=== PATIENT | male | born 1940 | race Hispanic/Latino ===

== ENCOUNTER 2018-01-22 12:48 | Observation (INO) | payer MEDICARE, OTHER ==
[2018-01-22 13:43] VITALS: BMI 31.1
--- NOTE | 2018-01-22 14:06 | ED PDOC ---
Arrival/HPI - General Chief Complaint: Abnormal Skin Integrity Time Seen by Provider: 01/22/18 13:40 Historian: Patient, Family (Daughter and son-in-law) - History of Present Illness Time/Duration: Other (6 or 7 months waxing and waning) Symptom Onset: Gradual Symptom Course: Worsening Quality: Aching Severity Level: Severe Activities at Onset: Rest Associated Symptoms (Text): 01/22/18 14:01 Patient complains of a 6 or 7 month history of a generalized bulus itchy rash. Becoming worse. He has been seen by the office clerk assistant once many months ago. No biopsy was done. He was admitted to the hospital and treated with IV antibiotics with some improvement. His been seen by the PMD and treated with by mouth steroids and antibiotics last week with no improvement. 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 Some minimal mucous membrane involvement Past Medical History - Infectious Disease Hx of Infectious Diseases: None - Tetanus Immunization Tetanus Immunization: Unknown - Cardiac Hx Cardiac Disorders: Yes Hx Hypertension: Yes - Neurological Hx Neurological Disorder: Yes Hx Transient Ischemic Attacks (TIA): Yes - Hematological/Oncological Hx Blood Transfusions: No Hx Blood Transfusion Reaction: No - Integumentary Hx Dermatological Disorder: Yes (GENERALIZED BLISTERING RASH) - Musculoskeletal/Rheumatological Hx Falls: Yes - Gastrointestinal Hx Gastrointestinal Disorders: No - Genitourinary/Gynecological Hx Genitourinary Disorders: No Hx Reproductive Disorders: No - Psychiatric Hx Substance Use: No (former) - Surgical History Other/Comment: hernia surgery and left shoulder surgery. - Anesthesia Hx Anesthesia Reactions: No Hx Malignant Hyperthermia: No Family/Social History - Physician Review Nursing Documentation Reviewed: Yes Family/Social History: Unknown Family HX Smoking Status: Former Smoker Hx Alcohol Use: No Hx Substance Use: No (former) Allergies/Home Meds Allergies/Adverse Reactions: Allergies No Known Allergies Allergy (Verified 01/22/18 13:37) Review of Systems - Physician Review All systems were reviewed & negative as marked: Yes - Review of Systems Constitutional: Fatigue. absent: Fevers Respiratory: Normal Cardiovascular: Normal Gastrointestinal: Normal Genitourinary Male: Normal Skin: Rash Neurological: Normal Physical Exam Vital Signs Temp Pulse Resp BP Pulse Ox 01/22/18 14:59 86 18 143/98 H 96 01/22/18 13:38 96 H 18 146/121 H 98 01/22/18 12:49 98.2 F Temperature: Afebrile Blood Pressure: Normal Pulse: Regular Respiratory Rate: Normal Appearance: Positive for: Well-Appearing, Non-Toxic, Comfortable Pain Distress: None Mental Status: Positive for: Alert and Oriented X 3 - Systems Exam Head: Present: Atraumatic, Normocephalic Pupils: Present: PERRL Extroacular Muscles: Present: EOMI Conjunctiva: Present: Normal Mouth: Present: Moist Mucous Membranes, Other (blisters) Respiratory/Chest: Present: Clear to Auscultation, Good Air Exchange, Decreased Breath Sounds. No: Respiratory Distress, Accessory Muscle Use Cardiovascular: Present: Regular Rate and Rhythm, Normal S1, S2. No: Murmurs Abdomen: No: Tenderness, Distention, Peritoneal Signs, Rebound, Guarding Back: Present: Normal Inspection Upper Extremity: Present: Normal Inspection. No: Cyanosis, Edema Lower Extremity: Present: Normal Inspection. No: Edema Neurological: Present: GCS=15, CN II-XII Intact, Speech Normal, Motor Func Grossly Intact Skin: Present: Rashes (Severe generalized, mostly bilateral thighs and lower abdomen clear fluid-filled blisters of approximately 2 cm painful and itching) Psychiatric: Present: Alert, Oriented x 3, Normal Insight, Normal Concentration Medical Decision Making - Lab Interpretations Lab Results: 01/22/18 14:15 01/22/18 14:15 Lab Results 01/22/18 14:15: Sodium 144, Potassium 4.2, Chloride 108 H, Carbon Dioxide 27, Anion Gap 14, BUN 23 H, Creatinine 0.8, Est GFR ( Amer) > 60, Est GFR ( Non-Af Amer) > 60, Random Glucose 92, Calcium 10.0, Total Bilirubin 0.4, AST 19 , ALT 19, Alkaline Phosphatase 68, Total Protein 6.8, Albumin 3.6, Globulin 3.2 , Albumin/Globulin Ratio 1.1 01/22/18 14:15: WBC 9.2 D, RBC 4.79, Hgb 13.3 L, Hct 41.0 L, MCV 85.6, MCH 27.8 , MCHC 32.4, RDW 15.8 H, Plt Count 281, MPV 9.5, Gran % 55.3, Lymph % (Auto) 12.0 L, [place] % (Auto) 4.6, Eos % (Auto) 28.0 H, Baso % (Auto) 0.1, Gran # 5.06, Lymph # (Auto) 1.1 L, [place] # (Auto) 0.4, Eos # (Auto) 2.6 H, Baso # (Auto) 0.01 , Neutrophils % (Manual) 53, Lymphocytes % (Manual) 14 L, Monocytes % (Manual) 5 , Eosinophils % (Manual) 28 H, Platelet Evaluation Normal - Medication Orders Current Medication Orders: Discontinued Medications Methylprednisolone (Solu-Medrol) 125 mg IVP ONCE ONE Stop: 01/22/18 14:11 Last Admin: 01/22/18 14:18 Dose: 125 mg IVP Administration Document 01/22/18 14:18 EQ (Rec: 01/22/18 14:18 EQ [id number]) Charges for Administration # of IVP Administrations 1 Disposition/Present on Arrival - Present on Arrival Any Indicators Present on Arrival: No History of DVT/PE: Yes History of Uncontrolled Diabetes: No Urinary Catheter: No History of Decub. Ulcer: No History Surgical Site Infection Following: None - Disposition Have Diagnosis and Disposition been Completed?: Yes Diagnosis: Pemphigus vulgaris Disposition: HOSPITALIZED Disposition Time: 15:41 Patient Plan: Observation Patient Problems: Current Active Problems Problem Status Onset Pemphigus vulgaris Acute Condition: FAIR Referrals: Markie Padron MD [Primary Care Provider] - Follow up with primary Forms: [employer] ([place])
[2018-01-22 14:44] LABS: BASO # 0.01 K/mm3 (0.0-2.0); BASO % 0.1 % (0.0-3.0); EOS # 2.6 (0.0-0.7); GRAN # 5.06 (1.4-6.5); GRAN % 55.3 % (50.0-68.0); HEMOGLOBIN 13.3 g/dL (14.0-18.0); LYMPH # 1.1 (1.2-3.4); MEAN CELL VOLUME 85.6 fl (80.0-105.0); MEAN CORPUSCULAR HEMOGLOBIN 27.8 pg (25.0-35.0); MEAN CORPUSCULAR HGB CONC 32.4 g/dl (31.0-37.0); MEAN PLATELET VOLUME 9.5 fl (7.0-11.0); MONO # 0.4 (0.1-0.6); MONO % 4.6 % (1.0-6.0); PLATELET COUNT 281 10^3/uL (120.0-450.0); RBC 4.79 10^6/uL (3.5-6.1); RED CELL DISTRIBUTION WIDTH 15.8 % (11.5-14.5); WHITE BLOOD COUNT 9.2 10^3/ul (4.5-11.0)
[2018-01-22 14:54] LABS: ALB/GLOB RATIO 1.1 (1.1-1.8); ALBUMIN 3.6 g/dL (3.0-4.8); ALT/SGPT 19 U/L (7-56); AST/SGOT 19 U/L (17-59); BLOOD UREA NITROGEN 23 mg/dL (7-21); GFR AFRICAN-AMERICAN > 60; GFR NON-AFRICAN AMERICAN > 60
[2018-01-22 14:59] LABS: EOSINOPHIL 28 % (0.0-3.0); LYMPHOCYTE 14 % (22.0-35.0); MONOCYTE 5 % (1.0-6.0); NEUTROPHIL 53 % (50.0-70.0)
[2018-01-22 15:00] LABS: PLATELET ESTIMATE NORMAL (NORMAL)
[2018-01-22] MEDS: cefTRIAXone 1 gm 1 GM/100 ML BAG IVPB SCH (16:13)
--- NOTE | 2018-01-22 16:15 | CP.PCM.HP ---
History of Present Illness - History of Present Illness History of Present Illness: 78 year old male with past medical history of HTN, brain aneurysm, bullous pemphigoid, and PE (not on anticoagulation) presents with 3 month history of worsening skin rash. Patient was admitted to hospital for 4 months ago for similar symptoms. Patient was was treated with antibiotics and steroids, then told to follow up with dermatology. Today, patient presents to the hospital for worsening itching and rupturing of blisters on his abdomen, that have now spread to his legs. Patient admits to severe itching and spreading of blisters over the last 3 months. Patient has not followed up with dermatology. Patient saw his PMD 2 weeks ago who prescribed patient doxycycline and placed patient on steroid therapy. Patient states his symptoms did not improve and came to the hospital. Patient denies chest pain, shortness of breath, vomiting, diarrhea, fever, chills, dysphagia, hematochezia, syncope, dysuria, changes in vision. PMD: Dr. Padron PMH: brain aneurysm, HTN, bullous pemphigoid, and PE PSH: Hiatal hernia repair Allergies: NKDA Medications: Reviewed, as per MAR Social history: Denies alocohol, tobacco, or illicit drug use Present on Admission - Present on Admission Any Indicators Present on Admission: No Review of Systems - Review of Systems Review of Systems: 12 point ROS as per HPI, otherwise negative. Past Patient History - Infectious Disease Hx of Infectious Diseases: None - Tetanus Immunizations Tetanus Immunization: Unknown - Past Medical History & Family History Past Medical History?: Yes - Past Social History Smoking Status: Former Smoker - CARDIAC Hx Cardiac Disorders: Yes Hx Hypertension: Yes - NEUROLOGICAL Hx Neurological Disorder: Yes Hx Transient Ischemic Attacks (TIA): Yes - HEMATOLOGICAL/ONCOLOGICAL Hx Blood Transfusions: No Hx Blood Transfusion Reaction: No - INTEGUMENTARY Hx Dermatological Problems: Yes (GENERALIZED BLISTERING RASH) - MUSCULOSKELETAL/RHEUMATOLOGICAL Hx Falls: Yes - GASTROINTESTINAL Hx Gastrointestinal Disorders: No - GENITOURINARY/GYNECOLOGICAL Hx Genitourinary Disorders: No Hx Reproductive Disorders: No - PSYCHIATRIC Hx Substance Use: No (former) - SURGICAL HISTORY Other/Comment: hernia surgery and left shoulder surgery. - ANESTHESIA Hx Anesthesia Reactions: No Hx Malignant Hyperthermia: No Meds Allergies/Adverse Reactions: Allergies Allergy/AdvReac Type Severity Reaction Status Date / Time No Known Allergies Allergy Verified 01/22/18 13:37 Physical Exam - Constitutional Appears: Non-toxic, No Acute Distress - Head Exam Head Exam: ATRAUMATIC, NORMAL INSPECTION, NORMOCEPHALIC - Eye Exam Eye Exam: EOMI, Normal appearance - ENT Exam ENT Exam: Mucous Membranes Moist, Normal Exam - Respiratory Exam Respiratory Exam: Clear to Auscultation Bilateral, NORMAL BREATHING PATTERN. absent: Rales, Rhonchi, Wheezes - Cardiovascular Exam Cardiovascular Exam: RRR, +S1, +S2 - GI/Abdominal Exam GI & Abdominal Exam: Normal Bowel Sounds, Soft. absent: Tenderness - Extremities Exam Extremities exam: Positive for: normal inspection. Negative for: calf tenderness, pedal edema - Neurological Exam Neurological exam: Alert, CN II-XII Intact, Oriented x3 - Psychiatric Exam Psychiatric exam: Normal Affect, Normal Mood - Skin Additional comments: Intact blisters on lower abdomen and b/l upper legs. Blisters sparing the back. Multiple ruptured blisters with scabbing over lower abdomen and upper legs Mild erythema along upper legs, sparing the scrotum and genital region Results - Vital Signs Recent Vital Signs: Last Vital Signs Temp 98.2 F 01/22/18 12:49 Pulse 82 01/22/18 15:59 Resp 18 01/22/18 15:59 BP 146/82 01/22/18 15:59 Pulse Ox 98 01/22/18 15:59 - Labs Result Diagrams: 01/22/18 14:15 01/22/18 14:15 Labs: Laboratory Results - last 24 hr 01/22/18 01/22/18 14:15 14:15 WBC 9.2 D RBC 4.79 Hgb 13.3 L Hct 41.0 L MCV 85.6 MCH 27.8 MCHC 32.4 RDW 15.8 H Plt Count 281 MPV 9.5 Gran % 55.3 Lymph % (Auto) 12.0 L [place] % (Auto) 4.6 Eos % (Auto) 28.0 H Baso % (Auto) 0.1 Gran # 5.06 Lymph # (Auto) 1.1 L [place] # (Auto) 0.4 Eos # (Auto) 2.6 H Baso # (Auto) 0.01 Neutrophils % (Manual) 53 Lymphocytes % (Manual) 14 L Monocytes % (Manual) 5 Eosinophils % (Manual) 28 H Platelet Evaluation Normal Sodium 144 Potassium 4.2 Chloride 108 H Carbon Dioxide 27 Anion Gap 14 BUN 23 H Creatinine 0.8 Est GFR ( Amer) > 60 Est GFR (Non-Af Amer) > 60 Random Glucose 92 Calcium 10.0 Total Bilirubin 0.4 AST 19 ALT 19 Alkaline Phosphatase 68 Total Protein 6.8 Albumin 3.6 Globulin 3.2 Albumin/Globulin Ratio 1.1 Assessment & Plan - Assessment and Plan (Free Text) Plan: 78 year old male with past medical history of HTN, brain aneurysm, bullous pemphigoid, and PE presents with cellulitis and worsening of bullous pemphigoid. Patient will be restarted on broad spectrum antibiotics and have ID consulted. Will also start patient on IV steroid therapy. 1. Bullous pemphigoid, r/o cellulitis Rocephin and Doxycycline Solumedrol 40 mg q8h Benadryl prn for pruritus Wound culture ID consult 2. HTN Continue Coreg 3. Normocytic anemia Hg stable, at baseline Follow up outpatient 4. Prophylaxis Pepcid Heparin [place]a, PGY-2
[2018-01-22] MEDS: MethylPREDNISolone 40 mg Vial IVP SCH (16:26)
--- NOTE | 2018-01-22 19:32 | CP.PCM.PN ---
Subjective - Date & Time of Evaluation Date of Evaluation: 01/22/18 Time of Evaluation: 19:31 - Subjective Subjective: # 20 angiocath was inserted in left forearm. Dx:Poor venous access. Objective - Vital Signs/Intake and Output Vital Signs (last 24 hours): Temp Pulse Resp BP Pulse Ox 98.2 F 94 H 18 148/103 H 98 01/22/18 12:49 01/22/18 17:23 01/22/18 16:27 01/22/18 17:23 01/22/18 15:59 - Medications Medications: Current Medications Carvedilol (Coreg) 12.5 mg PO BID [facility] Last Admin: 01/22/18 17:23 Dose: 12.5 mg Diphenhydramine HCl (Benadryl) 25 mg PO Q8 PRN PRN Reason: Itching / Pruritus Famotidine (Pepcid) 40 mg PO HS JOSUE Heparin Sodium (Porcine) (Heparin) 5,000 units SC Q8 JOSUE PRN Reason: Protocol Doxycycline Hyclate 100 mg/ (Sodium Chloride) 100 mls @ 100 mls/hr IVPB Q12 JOSUE PRN Reason: Protocol Ceftriaxone Sodium (Rocephin 1 Gram Ivpb) 1 gm in 100 mls @ 100 mls/hr IVPB DAILY JOSUE PRN Reason: Protocol Last Admin: 01/22/18 16:13 Dose: 100 mls/hr Methylprednisolone (Solu-Medrol) 40 mg IVP Q8H [facility] Last Admin: 01/22/18 16:26 Dose: Not Given
[2018-01-22 20:19] VITALS: RESP 20
[2018-01-23] MEDS: MethylPREDNISolone 40 mg Vial IVP SCH ×2 (00:06→09:00)
[2018-01-23 07:31] VITALS: TEMP 98.2; O2SAT 96
[2018-01-23 07:34] LABS: MEAN CELL VOLUME 84.7 fl (80.0-105.0); MEAN CORPUSCULAR HEMOGLOBIN 26.4 pg (25.0-35.0); MEAN CORPUSCULAR HGB CONC 31.2 g/dl (31.0-37.0); MEAN PLATELET VOLUME 10.3 fl (7.0-11.0); RBC 4.24 10^6/uL (3.5-6.1); RED CELL DISTRIBUTION WIDTH 15.5 % (11.5-14.5); WHITE BLOOD COUNT 4.5 10^3/ul (4.5-11.0)
[2018-01-23 07:36] LABS: HEMOGLOBIN 11.2 g/dL (14.0-18.0)
[2018-01-23 07:43] LABS: ALB/GLOB RATIO 1.1 (1.1-1.8); ALBUMIN 3.3 g/dL (3.0-4.8); ALT/SGPT 24 U/L (7-56); AST/SGOT 17 U/L (17-59); BLOOD UREA NITROGEN 19 mg/dL (7-21); GFR AFRICAN-AMERICAN > 60; GFR NON-AFRICAN AMERICAN > 60
[2018-01-23] MEDS: cefTRIAXone 1 gm 1 GM/100 ML BAG IVPB SCH (09:52)
--- NOTE | 2018-01-23 12:36 | CP.PCM.CON ---
History of Present Illness - History of Present Illness History of Present Illness: 78 year old male with PMH of HTN, history of brain aneurysm, history of pulmonary embolism, S/P hiatal hernia repair, obesity with BMI 31, has seen a mold maker after seen at [facility] last year for bullous lesions of the skin and was told he probable has bullous pemphigoid. He was given steroids which initially helped but then he stopped seeing the mold maker because of financial burden. Since then the rash has been worsening with more bullous lesions coming out of his right side of the abdomen as well as his legs. His previous lesions did get better with steroids. He was also prescribed steroids and doxycycline by his PMD 2 weeks ago which apparently did not help. He denies animal contacts, no fever or chills, no soil contact, no headache or dizziness, no chest pain, no SOB, no abdominal pain, no diarrhea, no dysuria, no cough or colds. Infectious Diseases consult is requested to further evaluate and manage. Review of Systems - Review of Systems All systems: reviewed and no additional remarkable complaints except (as per HPI ) Past Patient History - Infectious Disease Hx of Infectious Diseases: None - Tetanus Immunizations Tetanus Immunization: Unknown - Past Medical History & Family History Past Medical History?: Yes - Past Social History Smoking Status: Former Smoker - CARDIAC Hx Cardiac Disorders: Yes Hx Hypertension: Yes - NEUROLOGICAL Hx Neurological Disorder: Yes Hx Transient Ischemic Attacks (TIA): Yes - HEMATOLOGICAL/ONCOLOGICAL Hx Blood Transfusions: No Hx Blood Transfusion Reaction: No - INTEGUMENTARY Hx Dermatological Problems: Yes (GENERALIZED BLISTERING RASH) - MUSCULOSKELETAL/RHEUMATOLOGICAL Hx Falls: No - GASTROINTESTINAL Hx Gastrointestinal Disorders: No - GENITOURINARY/GYNECOLOGICAL Hx Genitourinary Disorders: No - PSYCHIATRIC Hx Substance Use: No - SURGICAL HISTORY Other/Comment: hernia surgery and left shoulder surgery. - ANESTHESIA Hx Anesthesia Reactions: No Hx Malignant Hyperthermia: No Meds Allergies/Adverse Reactions: Allergies Allergy/AdvReac Type Severity Reaction Status Date / Time No Known Allergies Allergy Verified 01/22/18 13:37 - Medications Medications: Current Medications Carvedilol (Coreg) 12.5 mg PO BID [facility] Last Admin: 01/22/18 17:23 Dose: 12.5 mg Diphenhydramine HCl (Benadryl) 25 mg PO Q8 PRN PRN Reason: Itching / Pruritus Famotidine (Pepcid) 40 mg PO HS [facility] Last Admin: 01/22/18 21:40 Dose: 40 mg Heparin Sodium (Porcine) (Heparin) 5,000 units SC Q8 JOSUE PRN Reason: Protocol Last Admin: 01/22/18 21:36 Dose: 5,000 units Doxycycline Hyclate 100 mg/ (Sodium Chloride) 100 mls @ 100 mls/hr IVPB Q12 JOSUE PRN Reason: Protocol Last Admin: 01/22/18 21:36 Dose: 100 mls/hr Ceftriaxone Sodium (Rocephin 1 Gram Ivpb) 1 gm in 100 mls @ 100 mls/hr IVPB DAILY JOSUE PRN Reason: Protocol Last Admin: 01/22/18 16:13 Dose: 100 mls/hr Methylprednisolone (Solu-Medrol) 40 mg IVP Q8H [facility] Last Admin: 01/22/18 16:26 Dose: Not Given Physical Exam - Constitutional Appears: Chronically Ill - Head Exam Head Exam: NORMAL INSPECTION - ENT Exam ENT Exam: Mucous Membranes Moist - Neck Exam Neck exam: Negative for: Lymphadenopathy, Meningismus - Respiratory Exam Respiratory Exam: Decreased Breath Sounds - Cardiovascular Exam Cardiovascular Exam: +S1, +S2 - GI/Abdominal Exam GI & Abdominal Exam: Soft. absent: Tenderness - Skin Additional comments: bullous skin lesions noted on the upper thighs and right side of the abdomen with scabs noted from previous bullous lesions Results - Vital Signs Recent Vital Signs: Last Vital Signs Temp 97.2 F L 01/22/18 18:05 Pulse 80 01/22/18 18:05 Resp 20 01/22/18 18:05 BP 136/80 01/22/18 18:05 Pulse Ox 98 01/22/18 18:05 - Labs Result Diagrams: 01/23/18 07:00 01/23/18 07:00 Assessment & Plan - Assessment and Plan (Free Text) Plan: Assessment consider bullous pemphigoid with no evidence of superimposed cellulitis HTN history of brain aneurysm history of pulmonary embolism S/P hiatal hernia repair Plan was started on Rocephin and Doxycycline but can d/c Rocephin - continue steroids as per primary medical team can complete 7-10 days of Doxycycline
--- NOTE | 2018-01-23 15:30 | CP.PCM.DIS ---
<Leander Andrade - Last Filed: 01/23/18 15:18> Provider - Provider Date of Admission: 01/22/18 15:39 Attending physician: Myke Coello MD Primary care physician: Markie Padron MD Consults: ID: Dr. Bills Time Spent in preparation of Discharge (in minutes): 30 Diagnosis - Discharge Diagnosis (1) Bullous pemphigoid Status: Acute Priority: High (2) Hypertension Status: Chronic Priority: Medium Hospital Course - Lab Results Lab Results: Most Recent Lab Values WBC 4.5 10^3/ul (4.5-11.0) D 01/23/18 07:00 RBC 4.24 10^6/uL (3.5-6.1) 01/23/18 07:00 Hgb 11.2 g/dL (14.0-18.0) L D 01/23/18 07:00 Hct 35.9 % (42.0-52.0) L 01/23/18 07:00 MCV 84.7 fl (80.0-105.0) 01/23/18 07:00 MCH 26.4 pg (25.0-35.0) 01/23/18 07:00 MCHC 31.2 g/dl (31.0-37.0) 01/23/18 07:00 RDW 15.5 % (11.5-14.5) H 01/23/18 07:00 Plt Count 252 10^3/uL (120.0-450.0) 01/23/18 07:00 MPV 10.3 fl (7.0-11.0) 01/23/18 07:00 Gran % 55.3 % (50.0-68.0) 01/22/18 14:15 Lymph % (Auto) 12.0 % (22.0-35.0) L 01/22/18 14:15 [place] % (Auto) 4.6 % (1.0-6.0) 01/22/18 14:15 Eos % (Auto) 28.0 % (1.5-5.0) H 01/22/18 14:15 Baso % (Auto) 0.1 % (0.0-3.0) 01/22/18 14:15 Gran # 5.06 (1.4-6.5) 01/22/18 14:15 Lymph # (Auto) 1.1 (1.2-3.4) L 01/22/18 14:15 [place] # (Auto) 0.4 (0.1-0.6) 01/22/18 14:15 Eos # (Auto) 2.6 (0.0-0.7) H 01/22/18 14:15 Baso # (Auto) 0.01 K/mm3 (0.0-2.0) 01/22/18 14:15 Neutrophils % (Manual) 53 % (50.0-70.0) 01/22/18 14:15 Lymphocytes % (Manual) 14 % (22.0-35.0) L 01/22/18 14:15 Monocytes % (Manual) 5 % (1.0-6.0) 01/22/18 14:15 Eosinophils % (Manual) 28 % (0.0-3.0) H 01/22/18 14:15 Platelet Evaluation Normal (NORMAL) 01/22/18 14:15 Sodium 143 mmol/L (132-148) 01/23/18 07:00 Potassium 4.3 mmol/L (3.6-5.0) 01/23/18 07:00 Chloride 108 mmol/L (98-107) H 01/23/18 07:00 Carbon Dioxide 25 mmol/L (21-33) 01/23/18 07:00 Anion Gap 14 (10-20) 01/23/18 07:00 BUN 19 mg/dL (7-21) 01/23/18 07:00 Creatinine 0.6 mg/dl (0.8-1.5) L 01/23/18 07:00 Est GFR ( Amer) > 60 01/23/18 07:00 Est GFR (Non-Af Amer) > 60 01/23/18 07:00 Random Glucose 137 mg/dL (70-110) H 01/23/18 07:00 Calcium 9.0 mg/dL (8.4-10.5) 01/23/18 07:00 Total Bilirubin 0.2 mg/dL (0.2-1.3) 01/23/18 07:00 AST 17 U/L (17-59) 01/23/18 07:00 ALT 24 U/L (7-56) 01/23/18 07:00 Alkaline Phosphatase 56 U/L (38-126) 01/23/18 07:00 Total Protein 6.5 g/dL (5.8-8.3) 01/23/18 07:00 Albumin 3.3 g/dL (3.0-4.8) 01/23/18 07:00 Globulin 3.1 gm/dL 01/23/18 07:00 Albumin/Globulin Ratio 1.1 (1.1-1.8) 01/23/18 07:00 - Hospital Course Hospital Course: Patient is a 78 year old male with past medical history of HTN, brain aneurysm, bullous pemphigoid, and PE (not on anticoagulation) who presented with 3 month history of worsening skin rash that had been noted to cause him itching and rupturing of blisters on his abdomen with spreading to his anterior lower legs bilaterally. Patient had been treated previously with IV antibiotics, steroids, and wound care before for similar presentation. Patient was admitted and placed on IV antibiotics and steroids. ID was consulted and recommended doxycycline and steroids for outpatient therapy pending follow up with PMD and pattern cutter. Patient was placed on doxycycline and prednisone oral for his mild to moderate bullous pemphigoid. Patient was consulted heavily on the importance of appropriate medication adherence and follow up with PMD and Casing Crew for tapering of steroids. Patient reported improvement of his symptoms during hospital stay, continued to be hemodynamically stable and afebrile. Patient denied chest pain, shortness of breath, vomiting, diarrhea, fever, chills, dysphagia, hematochezia, syncope, dysuria, changes in vision. He was discharged with instructions to follow up with PMD and pattern cutter. All questions were answered from patient. Patient was instructed to return to ED if he developed symptoms of fever, chills, diarrhea, vomiting, further worsening of his current skin manifestations. - Date & Time of H&P Date of H&P: 01/22/18 Time of H&P: 16:05 Discharge Exam - Head Exam Head Exam: NORMAL INSPECTION - Eye Exam Eye Exam: EOMI, PERRL - Respiratory Exam Respiratory Exam: Clear to PA & Lateral. absent: Rales, Wheezes, Stridor - Cardiovascular Exam Cardiovascular Exam: REGULAR RHYTHM, +S1, +S2 - GI/Abdominal Exam GI & Abdominal Exam: Normal Bowel Sounds, Soft, Unremarkable Additional comments: bullous lesions noted, old scarring and scabing noted on lower abdomen b/l - Neurological Exam Neurological exam: Alert, CN II-XII Intact, Oriented x3 - Psychiatric Exam Psychiatric exam: Normal Affect, Normal Mood - Skin Skin Exam: Dry Additional comments: Patient noted to have bullous lesions with fluid collection, minimal bullous formations with leakage, old scarring noted from previous lesions on anterior b/ l legs as well as lower abdomen Discharge Plan - Discharge Medications Prescriptions: RX: Carvedilol [Coreg] 12.5 mg PO BID #60 tab RX: Doxycycline Hyclate 100 mg PO BID #14 cap RX: Prednisone 50 mg PO DAILY 21 Days #21 tablet - Follow Up Plan Condition: FAIR Disposition: HOME/ ROUTINE Instructions: Itchy Skin Additional Instructions: - Follow up with PMD within 1 to 2 weeks following discharge - Follow up with Casing Crew 1 to 2 weeks following discharge - Follow up with Casing Crew upon discharge - Take all medications as prescribed to you - If symptoms worsen or return contact your PMD office for instructions - Keep areas of affected skin clean and dry Referrals: Markie Padron MD [Primary Care Provider] - <Myke Coello - Last Filed: 01/23/18 15:48> Provider - Provider Date of Admission: 01/22/18 15:39 Attending physician: Myke Coello MD Primary care physician: Markie Padron MD Time Spent in preparation of Discharge (in minutes): 35 Hospital Course - Lab Results Lab Results: Most Recent Lab Values WBC 4.5 10^3/ul (4.5-11.0) D 01/23/18 07:00 RBC 4.24 10^6/uL (3.5-6.1) 01/23/18 07:00 Hgb 11.2 g/dL (14.0-18.0) L D 01/23/18 07:00 Hct 35.9 % (42.0-52.0) L 01/23/18 07:00 MCV 84.7 fl (80.0-105.0) 01/23/18 07:00 MCH 26.4 pg (25.0-35.0) 01/23/18 07:00 MCHC 31.2 g/dl (31.0-37.0) 01/23/18 07:00 RDW 15.5 % (11.5-14.5) H 01/23/18 07:00 Plt Count 252 10^3/uL (120.0-450.0) 01/23/18 07:00 MPV 10.3 fl (7.0-11.0) 01/23/18 07:00 Gran % 55.3 % (50.0-68.0) 01/22/18 14:15 Lymph % (Auto) 12.0 % (22.0-35.0) L 01/22/18 14:15 [place] % (Auto) 4.6 % (1.0-6.0) 01/22/18 14:15 Eos % (Auto) 28.0 % (1.5-5.0) H 01/22/18 14:15 Baso % (Auto) 0.1 % (0.0-3.0) 01/22/18 14:15 Gran # 5.06 (1.4-6.5) 01/22/18 14:15 Lymph # (Auto) 1.1 (1.2-3.4) L 01/22/18 14:15 [place] # (Auto) 0.4 (0.1-0.6) 01/22/18 14:15 Eos # (Auto) 2.6 (0.0-0.7) H 01/22/18 14:15 Baso # (Auto) 0.01 K/mm3 (0.0-2.0) 01/22/18 14:15 Neutrophils % (Manual) 53 % (50.0-70.0) 01/22/18 14:15 Lymphocytes % (Manual) 14 % (22.0-35.0) L 01/22/18 14:15 Monocytes % (Manual) 5 % (1.0-6.0) 01/22/18 14:15 Eosinophils % (Manual) 28 % (0.0-3.0) H 01/22/18 14:15 Platelet Evaluation Normal (NORMAL) 01/22/18 14:15 Sodium 143 mmol/L (132-148) 01/23/18 07:00 Potassium 4.3 mmol/L (3.6-5.0) 01/23/18 07:00 Chloride 108 mmol/L (98-107) H 01/23/18 07:00 Carbon Dioxide 25 mmol/L (21-33) 01/23/18 07:00 Anion Gap 14 (10-20) 01/23/18 07:00 BUN 19 mg/dL (7-21) 01/23/18 07:00 Creatinine 0.6 mg/dl (0.8-1.5) L 01/23/18 07:00 Est GFR ( Amer) > 60 01/23/18 07:00 Est GFR (Non-Af Amer) > 60 01/23/18 07:00 Random Glucose 137 mg/dL (70-110) H 01/23/18 07:00 Calcium 9.0 mg/dL (8.4-10.5) 01/23/18 07:00 Total Bilirubin 0.2 mg/dL (0.2-1.3) 01/23/18 07:00 AST 17 U/L (17-59) 01/23/18 07:00 ALT 24 U/L (7-56) 01/23/18 07:00 Alkaline Phosphatase 56 U/L (38-126) 01/23/18 07:00 Total Protein 6.5 g/dL (5.8-8.3) 01/23/18 07:00 Albumin 3.3 g/dL (3.0-4.8) 01/23/18 07:00 Globulin 3.1 gm/dL 01/23/18 07:00 Albumin/Globulin Ratio 1.1 (1.1-1.8) 01/23/18 07:00 Attending/Attestation - Attestation I have personally seen and examined this patient.: Yes I have fully participated in the care of the patient.: Yes I have reviewed all pertinent clinical information, including history, physical exam and plan: Yes Notes (Text): 01/23/18 15:40 78 year old male with past medical history of hypertension and bullous pemphigoid who presented with bilateral lower extremity skin rash with rupturing blisters/bullae. He was started on iv antibiotics and steroids. He was seen by ID who recommended po doxycycline and steroids. Patient is discharged home to follow up with his pmd. Continue with po antibiotics and tapering steroids. Follow up with pattern cutter. Myke Coello MD Hospitalist.
[2018-01-23 17:46] VITALS: BP 146/95; PULSE 75
== END 2018-01-23 18:19 | disposition home or self-care (01) ==
LOC: ED 12:48 → ERH 15:39 → 5RSO 16:31
PROVIDERS: ADMIT Internal Medicine; ATTEND Internal Medicine
DX: L12.0 Bullous pemphigoid (principal); I10 Essential (primary) hypertension; I67.1 Cerebral aneurysm, nonruptured; D64.9 Anemia, unspecified; Z68.31 Body mass index [BMI] 31.0-31.9, adult; E66.9 Obesity, unspecified; Z86.73 Personal history of transient ischemic attack (TIA), and cerebral infarction without residual deficits; Z86.711 Personal history of pulmonary embolism
CPT/HCPCS: 36415; 80053; 85025; 85027; 87040; 96374; 99283; G0378; J0696; J1644; J2920; J2930

== ENCOUNTER 2018-03-28 15:53 | Inpatient (IN) | payer MEDICARE, OTHER ==
[2018-03-28 16:18] VITALS: BMI 27.2
--- NOTE | 2018-03-28 17:01 | ED PDOC ---
Arrival/HPI - General Chief Complaint: Lower Extremity Problem/Injury Time Seen by Provider: 03/28/18 16:27 Historian: Patient - History of Present Illness Narrative History of Present Illness (Text): 03/28/18 17:02 78yo male with PMhx of Phemphigoid bullous who present with complaint of worsening pruritic and painful rash to his diffuse body x 2weeks. Patient states the rash improved slightly after he was discharged from this hospital in January and then started getting worse again 2weeks ago. He saw a Gameplay Programmer in the past. states he is not on any medication currently. Denies any inciting factors, SOB, fever, neck pain, meningeal signs, any other complaint. Past Medical History - Provider Review Nursing Documentation Reviewed: Yes - Infectious Disease Hx of Infectious Diseases: None - Tetanus Immunization Tetanus Immunization: Unknown - Cardiac Hx Cardiac Disorders: Yes Hx Hypertension: Yes - Pulmonary Hx Respiratory Disorders: No - Neurological Hx Neurological Disorder: No - HEENT Hx HEENT Disorder: No - Renal Hx Renal Disorder: No - Endocrine/Metabolic Hx Endocrine Disorders: No - Hematological/Oncological Hx Blood Disorders: No - Integumentary Hx Dermatological Disorder: Yes (GENERALIZED BLISTERING RASH) - Musculoskeletal/Rheumatological Hx Musculoskeletal Disorders: No - Gastrointestinal Hx Gastrointestinal Disorders: No - Genitourinary/Gynecological Hx Genitourinary Disorders: No - Psychiatric Hx Psychophysiologic Disorder: No Hx Substance Use: No - Surgical History Other/Comment: hernia surgery and left shoulder surgery. - Anesthesia Hx Anesthesia Reactions: No Hx Malignant Hyperthermia: No Family/Social History - Physician Review Nursing Documentation Reviewed: Yes Family/Social History: Unknown Family HX Smoking Status: Former Smoker Hx Alcohol Use: Yes (former) Hx Substance Use: No Allergies/Home Meds Allergies/Adverse Reactions: Allergies No Known Allergies Allergy (Verified 03/28/18 16:17) Home Medications: Home Meds Medication Instructions Recorded Confirmed No Known Home Med 03/28/18 03/28/18 Review of Systems - Physician Review All systems were reviewed & negative as marked: Yes - Review of Systems Constitutional: Normal Eyes: Normal ENT: Normal Respiratory: Normal Cardiovascular: Normal Gastrointestinal: Normal Genitourinary Male: Normal Musculoskeletal: Normal Skin: Rash, Pruritis Neurological: Normal Endocrine: Normal Hemo/Lymphatic: Normal Psychiatric: Normal Physical Exam Vital Signs Reviewed: Yes Vital Signs Temp Pulse Resp BP Pulse Ox 03/28/18 21:55 98 F 90 18 140/91 H 99 03/28/18 20:26 98.1 F 91 H 20 153/105 H 95 03/28/18 19:28 170/101 H 03/28/18 16:18 98.0 F 91 H 18 140/97 H 96 Temperature: Afebrile Blood Pressure: Normal Pulse: Regular Respiratory Rate: Normal Appearance: Positive for: Well-Appearing, Non-Toxic, Comfortable Pain Distress: None Mental Status: Positive for: Alert and Oriented X 3 - Systems Exam Head: Present: Atraumatic, Normocephalic Pupils: Present: PERRL Extroacular Muscles: Present: EOMI Conjunctiva: Present: Normal Mouth: Present: Moist Mucous Membranes Neck: Present: Normal Range of Motion Respiratory/Chest: Present: Clear to Auscultation, Good Air Exchange. No: Respiratory Distress, Accessory Muscle Use Cardiovascular: Present: Regular Rate and Rhythm, Normal S1, S2. No: Murmurs Abdomen: No: Tenderness, Distention, Peritoneal Signs Back: Present: Normal Inspection Upper Extremity: Present: Normal Inspection. No: Cyanosis, Edema Lower Extremity: Present: Normal Inspection, Edema (3+ pitting edema of b/l LE noted), NORMAL PULSES (Decreased), Normal ROM, Tenderness, Neurovascularly Intact. No: Troy's Sign, Temperature Abnormalties Neurological: Present: GCS=15, CN II-XII Intact, Speech Normal Skin: Present: Warm, Dry, Rashes (Elevated hyperkeratoic thick erythematous patch noted on b/l arm, abdominal wall and worse on b/l thigh), Normal Color Psychiatric: Present: Alert, Oriented x 3, Normal Insight, Normal Concentration Medical Decision Making ED Course and Treatment: 03/28/18 22:01 78yo male present with pruritic and painful rash to his abdominal wall, b/l upper and lower extremities. Rash appeared cellulitic. Lab was ordered and no leukocytosis. B/L LE doppler was negative for DVT Pt's previous chart was reviewed and he was seen here in January for same complaint. He will need admission for IV abx. solu medrol was given in ED . CXR NAD EKG Sinus rhythm with PAC @93bpm NSTEMI Case was DW Dr. Osborn who saw pt in ED and accepted him for admission to his service. He requested Dr. Krishnamurthy consult. - Lab Interpretations Lab Results: 03/28/18 18:17 03/28/18 18:17 Lab Results 03/28/18 18:17: Sodium 142, Potassium 4.2, Chloride 106, Carbon Dioxide 26, Anion Gap 15, BUN 14, Creatinine 0.8, Est GFR ( Amer) > 60, Est GFR (Non- Af Amer) > 60, Random Glucose 90, Calcium 8.7, Total Bilirubin 0.3, AST 18, ALT 28, Alkaline Phosphatase 71, Lactate Dehydrogenase 502, Total Creatine Kinase 76 , Troponin I < 0.01, NT-Pro-B Natriuret Pep 686 H, Total Protein 6.3, Albumin 3.4, Globulin 2.8, Albumin/Globulin Ratio 1.2 03/28/18 18:17: PT 10.8, INR 0.95, APTT 32.0 03/28/18 18:17: WBC 8.4 D, RBC 4.44, Hgb 11.8 L, Hct 36.9 L, MCV 83.1, MCH 26.6 , MCHC 32.0, RDW 16.0 H, Plt Count 326, MPV 9.2, Gran % 49.6 L, Lymph % (Auto) 18.5 L, [place] % (Auto) 5.7, Eos % (Auto) 26.0 H, Baso % (Auto) 0.2, Gran # 4.16, Lymph # (Auto) 1.6, [place] # (Auto) 0.5, Eos # (Auto) 2.2 H, Baso # (Auto) 0.02, Neutrophils % (Manual) 56, Lymphocytes % (Manual) 20 L, Monocytes % (Manual) 5, Eosinophils % (Manual) 19 H, Platelet Evaluation Normal, Hypochromasia Slight, Anisocytosis (manual) 1+, Microcytosis (manual) Slight - RAD Interpretation Radiology Orders: 03/28/18 16:58 DUPLEX LOWER EXTRM VEIN BILAT [US] Stat - Medication Orders Current Medication Orders: Amlodipine Besylate (Norvasc) 5 mg PO DAILY JOSUE Furosemide (Lasix) 40 mg IVP DAILY JOSUE Piperacillin Sod/Tazobactam Sod (Zosyn 2.25 Gm In 0.9% 100 Ml) 2.25 gm in 100 mls @ 100 mls/hr IVPB Q8H JOSUE PRN Reason: Protocol Stop: 03/29/18 04:59 Last Admin: 03/28/18 20:56 Dose: Methylprednisolone (Solu-Medrol) 30 mg IVP Q12 JOSUE Last Admin: 03/28/18 23:14 Dose: 30 mg IVP Administration Document 03/28/18 23:14 PCO (Rec: 03/28/18 23:15 PCO [facility] [place] [facility] [id number][place] Charges for Administration # of IVP Administrations 1 Discontinued Medications Furosemide (Lasix) 40 mg IVP STAT STA Stop: 03/28/18 18:55 Last Admin: 03/28/18 19:28 Dose: 40 mg MAR Blood Pressure Document 03/28/18 19:28 LA (Rec: 03/28/18 19:30 LA [id number]) Blood Pressure Blood Pressure (100/60-150/90) 170/101 IVP Administration Document 03/28/18 19:28 LA (Rec: 03/28/18 19:30 LA [id number]) Charges for Administration # of IVP Administrations 1 Piperacillin Sod/Tazobactam Sod (Zosyn 3.375 In Ns 100ml) 100 mls @ 200 mls/hr IVPB STAT STA PRN Reason: Protocol Stop: 03/28/18 19:24 Last Admin: 03/28/18 19:28 Dose: 200 mls/hr eMAR Start Stop Document 03/28/18 19:28 LA (Rec: 03/28/18 19:28 LA [id number]) Intravenous Solution Start Date 03/28/18 Start Time 19:28 End Date 03/28/18 End time 19:58 Total Infusion Time 30 Methylprednisolone (Solu-Medrol) 125 mg IVP STAT STA Stop: 03/28/18 17:00 Last Admin: 03/28/18 17:35 Dose: 125 mg IVP Administration Document 03/28/18 17:35 LA (Rec: 03/28/18 17:35 LA [id number]) Charges for Administration # of IVP Administrations 1 Disposition/Present on Arrival - Present on Arrival Any Indicators Present on Arrival: No History of DVT/PE: No History of Uncontrolled Diabetes: No Urinary Catheter: No History of Decub. Ulcer: No History Surgical Site Infection Following: None - Disposition Have Diagnosis and Disposition been Completed?: Yes Diagnosis: Pemphigus vulgaris, Cellulitis, Edema Disposition: HOSPITALIZED Disposition Time: 18:45 Patient Plan: Admission Patient Problems: Current Active Problems Problem Status Onset Cellulitis Acute Edema Acute Pemphigus vulgaris Acute Condition: STABLE
[2018-03-28 18:24] LABS: BASO # 0.02 K/mm3 (0.0-2.0); BASO % 0.2 % (0.0-3.0); EOS # 2.2 (0.0-0.7); GRAN # 4.16 (1.4-6.5); GRAN % 49.6 % (50.0-68.0); HEMOGLOBIN 11.8 g/dL (14.0-18.0); LYMPH # 1.6 (1.2-3.4); LYMPH % 18.5 % (22.0-35.0); MEAN CELL VOLUME 83.1 fl (80.0-105.0); MEAN CORPUSCULAR HEMOGLOBIN 26.6 pg (25.0-35.0); MEAN PLATELET VOLUME 9.2 fl (7.0-11.0); MONO # 0.5 (0.1-0.6); MONO % 5.7 % (1.0-6.0); PLATELET COUNT 326 10^3/uL (120.0-450.0); RBC 4.44 10^6/uL (3.5-6.1); WHITE BLOOD COUNT 8.4 10^3/ul (4.5-11.0)
[2018-03-28 18:34] LABS: ALB/GLOB RATIO 1.2 (1.1-1.8); ALBUMIN 3.4 g/dL (3.0-4.8); ALT/SGPT 28 U/L (7-56); AST/SGOT 18 U/L (17-59); BLOOD UREA NITROGEN 14 mg/dL (7-21); CALCIUM 8.7 mg/dL (8.4-10.5); GFR AFRICAN-AMERICAN > 60; GFR NON-AFRICAN AMERICAN > 60
[2018-03-28 18:42] LABS: INR 0.95 (0.93-1.08); PROTHROMBIN TIME 10.8 SECONDS (9.4-12.5)
[2018-03-28 18:46] LABS: B-TYPE NATRIURETIC PEPTIDE 686 pg/mL (0-450); TROPONIN I < 0.01 ng/mL
[2018-03-28 18:49] LABS: LYMPHOCYTE 20 % (22.0-35.0); NEUTROPHIL 56 % (50.0-70.0)
[2018-03-28 18:50] LABS: ANISOCYTOSIS 1+; EOSINOPHIL 19 % (0.0-3.0); HYPOCHROMIA SLIGHT; MICROCYTOSIS SLIGHT; MONOCYTE 5 % (1.0-6.0); PLATELET ESTIMATE NORMAL (NORMAL)
[2018-03-28] MEDS ORDERED: Piperacillin/Tazobact 3.375 gm 100 ML IVPB STA (18:55)
[2018-03-28] MEDS: Piperacillin/Tazobact 2.25gm 2.25 GM/100 ML BAG IVPB SCH ×2 (20:05→20:56)
--- NOTE | 2018-03-28 21:42 | US ---
HISTORY: Leg pain and swelling. Evaluate for DVT PHYSICIAN(S): Silvino Barbour MD. TECHNIQUE: Duplex sonography and color-flow Doppler with graded compression were used to evaluate the deep venous systems of both lower extremities. The exam is limited by edema. The tibial veins are not well seen. FINDINGS: The visualized deep venous systems of both lower extremities are sonographically normal and compressible. Normal wave forms and augmentation are seen. There is no sonographic evidence for deep venous thrombosis in the visualized segments of both lower extremities. IMPRESSION: No sonographic evidence for deep venous thrombosis in the visualized segments of both lower extremities.
[2018-03-28] MEDS: MethylPREDNISolone 40 mg Vial IVP SCH (23:14)
--- NOTE | 2018-03-29 01:06 | HP ---
HISTORY OF PRESENT ILLNESS: I was called to the ER to admit this nice young man. He is 78 years old, who presents with swelling and itchiness of his lower extremity, very painful. He was discharged from the hospital in January. He got worse 2 weeks ago. He saw a site head in the past. He has no medications at this time. PAST MEDICAL HISTORY: He has a past medical history of pemphigoid bullous. He has got hypertension, generalized blistering of the rash. PAST SURGICAL HISTORY: He has had surgeries of hernia surgery, left shoulder surgery. FAMILY HISTORY: Unknown family history. SOCIAL HISTORY: Former smoker, former alcohol. No drugs. ALLERGIES: NO KNOWN DRUG ALLERGIES. MEDICATIONS: He does not take any medications. REVIEW OF SYSTEMS: His eyes are okay. His vision is okay. No changes. No shortness of breath. No chest pain. No nausea, vomiting, constipation, diarrhea. No problems urinating. His legs are swollen. There is a red rash on his legs, very itchy. No anxiety. No depression. Good spirits. PHYSICAL EXAMINATION: VITAL SIGNS: He has a 98 temp, 91 pulse, 18 respiratory rate, 140/97 blood pressure. I will put him on blood pressure medication and 96% O2 sat. GENERAL: He is well appearing, fairly comfortable with very itchy and very swollen legs. He is alert and oriented x3. HEENT: Head is atraumatic, normocephalic. Extraocular muscles are intact. Pupils equal, reactive to light. Throat is moist. NECK: Supple. HEART: Regular rate. Normal S1 and S2. LUNGS: Decreased breath sounds, but clear to auscultation bilaterally. ABDOMEN: Soft, nontender. Positive bowel sounds. No guarding, no rebound, no CVA tenderness. EXTREMITIES: Have +4/4 pitting edema bilateral up to the knee, very swollen, pitting edema, very heavy. NEUROLOGIC: GCS is 15. Cranial nerves II through XII grossly intact. Normal speech. SKIN: Reddened and thickened and itchy throughout the legs with blotches, looks cellulitic. PSYCHIATRIC: He is alert and oriented x3. LYMPHATICS: Thyroid midline. No palpable appreciable lymphadenopathy. LABORATORY DATA: He had multiple tests done. He has 8.4 white count, 11.8 hemoglobin, 36.9 hematocrit with 326 platelets. INR is 0.95. He has a 142 sodium, potassium 4.2, BUN 14, creatinine 0.8, GFR is greater than 60, sugar is 90, calcium is 8.7, total bili is 0.3. AST is 18, ALT is 28, alk phos 71. Lactate dehydrogenase is 502. Troponin I is less than 0.01. BNP is high at 686. Total protein 6.3. Ultrasound of leg and chest x-ray are pending. IMPRESSION: He got some Solu-Medrol in the emergency room because of the itch. I will give him some more Solu-Medrol, give him some Zosyn for the cellulitis, Lasix for the congestive heart failure and the swelling. He will have a consult with Infectious Disease and Cardiology. He will get physical therapy. Hopefully, he will improve and hopefully he will do well in the next few days. He might need physical therapy. Seems to be quite weak and he had cellulitis, congestive heart failure and hypertension. I will be putting him on amlodipine for that. Jose A Osborn DO
[2018-03-29 07:45] LABS: HEMOGLOBIN 11.4 g/dL (14.0-18.0); MEAN CORPUSCULAR HEMOGLOBIN 25.9 pg (25.0-35.0); MEAN CORPUSCULAR HGB CONC 31.6 g/dl (31.0-37.0); MEAN PLATELET VOLUME 9.1 fl (7.0-11.0); RBC 4.4 10^6/uL (3.5-6.1); RED CELL DISTRIBUTION WIDTH 15.8 % (11.5-14.5); WHITE BLOOD COUNT 4.4 10^3/ul (4.5-11.0)
[2018-03-29 07:58] LABS: ALB/GLOB RATIO 1.2 (1.1-1.8); ALBUMIN 3.6 g/dL (3.0-4.8); ALT/SGPT 21 U/L (7-56); AST/SGOT 17 U/L (17-59); BLOOD UREA NITROGEN 17 mg/dL (7-21); GFR AFRICAN-AMERICAN > 60; GFR NON-AFRICAN AMERICAN > 60
[2018-03-29] MEDS ORDERED: Piperacillin/Tazobact 2.25gm 2.25 GM/100 ML BAG IVPB SCH (08:15)
[2018-03-29] MEDS: MethylPREDNISolone 40 mg Vial IVP SCH ×2 (09:50→21:48)
--- NOTE | 2018-03-29 13:09 | RAD ---
HISTORY: admission COMPARISON: 08/23/2017 FINDINGS: LUNGS: Left hemidiaphragm currently more asymmetrically elevated. Left lung base discoid atelectatic like changes -not appreciated such on prior study projections different as well. Increase opacity seen over extreme right costophrenic angle -also projects over the anterior right rib here. Rib versus right pleural parenchymal pathology -slightly increased in conspicuity and/or an interval change here are considerations. Significance -if any -unclear PLEURA: No significant pleural effusion identified, no pneumothorax apparent. CARDIOVASCULAR: Cardiomegaly. Tortuous thoracic aorta OSSEOUS STRUCTURES: Left shoulder arthrosis right shoulder incompletely visualized. VISUALIZED UPPER ABDOMEN: Normal. OTHER FINDINGS: Possibility of a concomitant hiatal hernia not excluded. IMPRESSION: Limited exam given the rightward rotated status. Interval discoid atelectasis suspect lung base -left hemidiaphragm more cephalad in position. Interval vague opacity over extreme right costophrenic angle -as detailed above. Right rib based pathology, right pleural parenchymal pathology here are some considerations. Significance -if any -unclear consider less of an apical lordotic projection. Consider PA and lateral views for further evaluation. Cardiomegaly (more apparent on this exam). Sign And tortuous thoracic aorta
--- NOTE | 2018-03-29 15:39 | PN ---
DATE: 03/29/2018 SUBJECTIVE: A very nice man, slept well last night, doing much better. Legs are much less swollen, less red, less inflamed. I know you ordered the Zosyn when he fell off, I will reorder it now, his amlodipine, gets this morning, his blood pressure is a little bit high and the Lasix 40 is really difference in the IV. PHYSICAL EXAMINATION: VITAL SIGNS: He has a 98.4 temp; 88 pulse; 130/94 blood pressure, gets his Norvasc this morning, was as high as 105; respiratory rate 18; room air 98, oxygen saturation. HEENT: Head is atraumatic, normocephalic. HEART: Regular rate. LUNGS: Decreased breath sounds, but clear. ABDOMEN: Soft. EXTREMITIES: +2/4 pitting edema, it was +4/4 pitting edema in the ER yesterday, so it is doing better. The redness is much less and he can move them much better. He states he is feeling a lot better. LABORATORY DATA: He has 4.4 white count, 11.4 hemoglobin, 36.1 hematocrit with 380 platelets. He has 144 sodium, potassium 3.9, BUN 17, creatinine 0.8, GFR is greater than 60, sugar is 136, calcium is 9, total bili is 0.2. AST is 17, ALT is 21, alkaline phosphatase 57. BNP was 686, he is on Lasix 40. He has very swollen legs, total protein is 6.6. PLAN: Waiting for Cardiology and Infectious Disease to see him. He is on Zosyn, IV Lasix, order physical therapy, no venous thrombosis on ultrasound. We will get him out of bed to chair, physical therapy CHF, edema, cellulitis. Jose A Osborn DO MTDD
--- NOTE | 2018-03-29 15:50 | CARD ---
APPROVED REPORT EXAM: Two-dimensional and M-mode echocardiogram with Doppler and color Doppler. INDICATION Congestive Heart Failure 2D DIMENSIONS Left Atrium (2D)5.6 (1.6-4.0cm)IVSd1.1 (0.7-1.1cm) LVDd4.3 (3.9-5.9cm)PWd1.2 (0.7-1.1cm) LVDs2.9 (2.5-4.0cm)FS (%) 32.3 % LVEF (%)60.9 (>50%) M-Mode DIMENSIONS Aortic Root4.00 (2.2-3.7cm)Aortic Cusp Exc.1.90 (1.5-2.0cm) Aortic Valve AoV Peak Hazywxee345.0cm/sAoV VTI55.3cmAO Peak GR.25mmHg LVOT Peak Pzkebwfr991.0cm/sLVOT VTI28.90cmAO Mean GR.16mmHg AI P 1/2 Dmte762cf Mitral Valve MV E Caaohuus197.0cm/sMV A Rjsehtgu561.0cm/sE/A ratio0.7 TDI Lateral E' Peak V7.70cm/sMedial E' Peak V2.92cm/sE/Lateral E'13.2 E/Medial E'34.9 Pulmonary Valve PV Peak Ykwzzaog84.6cm/sPV Peak Grad.2mmHg Tricuspid Valve TR Peak Fkofwsxj319ub/sRAP ZWJNWMUQ21fpCqVX Peak Gr.28mmHg FZAQ91zsFy LEFT VENTRICLE The left ventricle is normal size. There is normal left ventricular wall thickness. The left ventricular function is normal. The left ventricular ejection fraction is within the normal range. There is normal LV segmental wall motion. Transmitral Doppler flow pattern is Grade I-abnormal relaxation pattern. RIGHT VENTRICLE The right ventricle is normal size. There is normal right ventricular wall thickness. The right ventricular systolic function is normal. ATRIA The left atrium is moderately dilated. The right atrium is mildly dilated. AORTIC VALVE The aortic valve is severely thickened. There is moderate aortic regurgitation. There is trace valvular aortic stenosis. MITRAL VALVE The mitral valve is mildly thickened. Mitral regurgitation is mild. TRICUSPID VALVE The tricuspid valve is normal in structure. There is mild tricuspid regurgitation. There is mild pulmonary hypertension. GREAT VESSELS The aortic root is mildly enlarged. PERICARDIAL EFFUSION There is no pericardial effusion. <Conclusion> The left ventricle is normal size. There is normal left ventricular wall thickness. The left ventricular function is normal. The left ventricular ejection fraction is within the normal range. There is normal LV segmental wall motion. Transmitral Doppler flow pattern is Grade I-abnormal relaxation pattern. The aortic valve is severely thickened. There is moderate aortic regurgitation. The aortic root is mildly enlarged. Mitral regurgitation is mild. There is mild tricuspid regurgitation. There is mild pulmonary hypertension.
--- NOTE | 2018-03-29 17:03 | CARD ---
APPROVED REPORT EKG Measurement Heart [id number] <Conclusion> Sinus rhythm with premature atrial complexes Anteroseptal infarct, age undetermined Abnormal ECG
--- NOTE | 2018-03-29 17:21 | CON ---
DATE: 03/29/2018 CARDIOLOGY CONSULTATION HISTORY: The patient is a 78-year-old male, who presents with several days of progressive pedal edema associated with pruritus. PAST MEDICAL HISTORY: The patient's past medical history is free of cardiac disease. No previous myocardial infarction. He suffers from hypertension, but no diabetes mellitus. No previous cardiac history. No previous coronary disease. SOCIAL HISTORY: The patient is a former smoker, stopped 20 years ago. REVIEW OF SYSTEMS: Fourteen-point review of systems is reviewed in detail. Other than the pedal edema, no dyspnea. No other cardiac symptoms are noted. PHYSICAL EXAMINATION: VITAL SIGNS: Blood pressure is 150/88, heart rates in the 90s. NECK: Negative JVD. LUNGS: Without rales. HEART: Reveals S1, S2. EXTREMITIES: 2+ edema bilaterally with erythema in the lower extremities. LABORATORY DATA: BUN and creatinine are unremarkable. The glucose varies from 90-136. White count is 4.4 with a hemoglobin of 11.4. EKG is unremarkable. The ProBNP is mildly elevated. Troponin is negative. IMPRESSION: 1. Pedal edema. 2. Cellulitis. 3. Hypertension. 4. Anemia. 5. Need to rule out pulmonary hypertension as well as a cardiomyopathy. PLAN: Given these findings, I agree with HELEN Martinez. We will obtain an echocardiogram. Silvino Cross MD
--- NOTE | 2018-03-29 20:41 | CP.PCM.CON ---
History of Present Illness - History of Present Illness History of Present Illness: 78 year old male with PMH of HTN, history of brain aneurysm, history of pulmonary embolism, S/P hiatal hernia repair, bullous pemphigoid came [place] [facility] of bilateral lower extremity swelling. The patient is also complaining of itching all over the body and has been seeing a Coal Trimmer Machine Operator for it and his skin lesions have been improving. He denies specific trauma to the legs, no chest pain, no SOB, no fever or chills, no animal contact, no headache or dizziness, no chest pain, no abdominal pain, no cough or colds, no diarrhea, no dysuria. Infectious Diseases consult is requested to further evaluate and manage. Review of Systems - Review of Systems All systems: reviewed and no additional remarkable complaints except (as per HPI ) Past Patient History - Infectious Disease Hx of Infectious Diseases: None - Tetanus Immunizations Tetanus Immunization: Unknown - Past Medical History & Family History Past Medical History?: Yes - Past Social History Smoking Status: Former Smoker - CARDIAC Hx Cardiac Disorders: Yes Hx Hypertension: Yes - PULMONARY Hx Respiratory Disorders: No - NEUROLOGICAL Hx Neurological Disorder: No - HEENT Hx HEENT Problems: No - RENAL Hx Chronic Kidney Disease: No - ENDOCRINE/METABOLIC Hx Endocrine Disorders: No - HEMATOLOGICAL/ONCOLOGICAL Hx Blood Disorders: No - INTEGUMENTARY Hx Dermatological Problems: Yes (GENERALIZED BLISTERING RASH) - MUSCULOSKELETAL/RHEUMATOLOGICAL Hx Musculoskeletal Disorders: No - GASTROINTESTINAL Hx Gastrointestinal Disorders: No - GENITOURINARY/GYNECOLOGICAL Hx Genitourinary Disorders: No - PSYCHIATRIC Hx Psychophysiologic Disorder: No Hx Substance Use: No - SURGICAL HISTORY Other/Comment: hernia surgery and left shoulder surgery. - ANESTHESIA Hx Anesthesia Reactions: No Hx Malignant Hyperthermia: No Meds Allergies/Adverse Reactions: Allergies Allergy/AdvReac Type Severity Reaction Status Date / Time No Known Allergies Allergy Verified 03/28/18 16:17 - Medications Medications: Current Medications Amlodipine Besylate (Norvasc) 5 mg PO DAILY JOSUE Furosemide (Lasix) 40 mg IVP DAILY JOSUE Piperacillin Sod/Tazobactam Sod (Zosyn 2.25 Gm In 0.9% 100 Ml) 2.25 gm in 100 mls @ 100 mls/hr IVPB Q8H JOSUE PRN Reason: Protocol Stop: 03/29/18 04:59 Last Admin: 03/28/18 20:56 Dose: Not Given Methylprednisolone (Solu-Medrol) 30 mg IVP Q12 JOSUE Physical Exam - Constitutional Appears: Non-toxic, Chronically Ill - Head Exam Head Exam: NORMAL INSPECTION - Respiratory Exam Respiratory Exam: Decreased Breath Sounds - Cardiovascular Exam Cardiovascular Exam: +S1, +S2 - GI/Abdominal Exam GI & Abdominal Exam: Soft. absent: Tenderness - Extremities Exam Additional comments: bilateral lower extremity swelling, without tenderness Results - Vital Signs Recent Vital Signs: Last Vital Signs Temp 98.1 F 03/28/18 20:26 Pulse 91 H 03/28/18 20:26 Resp 20 03/28/18 20:26 BP 153/105 H 03/28/18 20:26 Pulse Ox 95 03/28/18 20:26 - Labs Result Diagrams: 03/29/18 07:15 03/29/18 07:15 Assessment & Plan - Assessment and Plan (Free Text) Plan: Assessment lower extremity swelling, consider venous stasis bullous pemphigoid with no evidence of superimposed cellulitis HTN history of brain aneurysm history of pulmonary embolism S/P hiatal hernia repair Plan will start Doxycycline; follow up blood cx ultrasound of legs does not show DVT will monitor clinically
[2018-03-29 22:48] VITALS: O2SAT 95
[2018-03-30 06:26] LABS: HEMOGLOBIN 10.8 g/dL (14.0-18.0); MEAN CELL VOLUME 82.6 fl (80.0-105.0); MEAN CORPUSCULAR HEMOGLOBIN 26.2 pg (25.0-35.0); MEAN CORPUSCULAR HGB CONC 31.7 g/dl (31.0-37.0); MEAN PLATELET VOLUME 9.2 fl (7.0-11.0); RBC 4.13 10^6/uL (3.5-6.1); WHITE BLOOD COUNT 9.8 10^3/ul (4.5-11.0)
[2018-03-30 07:34] LABS: ALB/GLOB RATIO 1.3 (1.1-1.8); ALBUMIN 3.6 g/dL (3.0-4.8); ALT/SGPT 19 U/L (7-56); AST/SGOT 20 U/L (17-59); BLOOD UREA NITROGEN 22 mg/dL (7-21); CALCIUM 8.7 mg/dL (8.4-10.5); GFR AFRICAN-AMERICAN > 60; GFR NON-AFRICAN AMERICAN > 60
[2018-03-30 08:19] VITALS: PULSE 75; RESP 20; TEMP 98.5
--- NOTE | 2018-03-30 08:46 | PN ---
DATE: 03/30/2018 CARDIOLOGY FOLLOWUP SUBJECTIVE: The patient's edema is better. Vital signs are stable. Physical exam is unchanged. ECHOCARDIOGRAM: Echocardiogram reveals good LV function with mild pulmonary hypertension. Given these findings, the patient's treatment should be p.o. Lasix at home. Leg elevation will be appropriate. No further cardiac workup is necessary. Silvino Cross MD
[2018-03-30 09:20] VITALS: BP 130/90
[2018-03-30] MEDS ORDERED: Ammonium Lactate 12% Lotion (225 g) EXT SCH (10:00)
--- NOTE | 2018-03-30 15:34 | CP.PCM.PN ---
Subjective - Date & Time of Evaluation Date of Evaluation: 03/30/18 Time of Evaluation: 11:00 - Subjective Subjective: Patient is feeling better, no fevers, not in distress. Legs are less swollen. Objective - Vital Signs/Intake and Output Vital Signs (last 24 hours): Temp Pulse Resp BP Pulse Ox 98.5 F 75 20 130/90 95 03/30/18 06:00 03/30/18 06:00 03/30/18 06:00 03/30/18 09:18 03/30/18 06:00 Intake and Output: 03/30/18 03/30/18 06:59 18:59 Intake Total 100 Balance 100 - Medications Medications: Current Medications Amlodipine Besylate (Norvasc) 5 mg PO DAILY [facility] Last Admin: 03/30/18 09:18 Dose: 5 mg Carvedilol (Coreg) 12.5 mg PO Q12H [facility] Last Admin: 03/30/18 09:18 Dose: 12.5 mg Doxycycline Hyclate (Doryx) 100 mg PO Q12 [facility] PRN Reason: Protocol Last Admin: 03/30/18 09:17 Dose: 100 mg Furosemide (Lasix) 40 mg IVP BID [facility] Last Admin: 03/30/18 09:18 Dose: 40 mg Lactic Acid (Lac-Hydrin 12% Lotion (225 G)) 0 gm EXT BID [facility] Last Admin: 03/30/18 09:17 Dose: 1 applic Prednisone (Prednisone Tab) 30 mg PO DAILY [facility] Last Admin: 03/30/18 09:18 Dose: 30 mg - Labs Labs: 03/30/18 06:10 03/30/18 06:10 PT 10.8 SECONDS (9.4-12.5) 03/28/18 18:17 INR 0.95 (0.93-1.08) 03/28/18 18:17 APTT 32.0 Seconds (25.1-36.5) 03/28/18 18:17 - Constitutional Appears: Chronically Ill - Head Exam Head Exam: NORMAL INSPECTION - Respiratory Exam Respiratory Exam: Decreased Breath Sounds - Cardiovascular Exam Cardiovascular Exam: +S1, +S2 - GI/Abdominal Exam GI & Abdominal Exam: Soft. absent: Tenderness - Extremities Exam Additional comments: lower extremities with decreased swelling Assessment and Plan - Assessment and Plan (Free Text) Plan: Assessment lower extremity swelling, consider venous stasis, clinically improved bullous pemphigoid with no evidence of superimposed cellulitis HTN history of brain aneurysm history of pulmonary embolism S/P hiatal hernia repair Plan blood cx are negative - we can d/c doxycycline ultrasound of legs does not show DVT patient should follow up with Supply Chain Project Manager as an outpatient and patient understands this
--- NOTE | 2018-03-31 07:08 | DS ---
SUBJECTIVE: I saw him resting comfortably in bed. I also had a long discussion with Dr. Cross. He will go home on Lasix p.o. He is comfortable. His legs are much less swollen. It is still a little bit swollen, not so better. He will go on Coreg, Doryx, Lac-Hydrin, Lasix, Norvasc and prednisone. PHYSICAL EXAMINATION: VITAL SIGNS: He has 98.5 temperature, 75 pulse, 132/92 blood pressure, 20 respiratory rate, 95% O2 sat on room air. HEENT: Head atraumatic, normocephalic. HEART: Regular rate. LUNGS: Decreased breath sounds, but clear. ABDOMEN: Soft. EXTREMITIES: +2/4 pitting edema. SKIN: Dry. LABORATORY DATA: He has 9.8 white count, 10.8 hemoglobin, 34.1 hematocrit, with a 327 platelets. Sodium 143, potassium 3.8, BUN 22, creatinine 0.7, GFR is greater than 60, sugar is 125, calcium is 8.7, total bilirubin is 0.1, AST is 20, ALT is 19, alkaline phosphatase 64, total protein 6.5. ASSESSMENT AND PLAN: He was here with CHF, edema, cellulitis, and he will be discharged. I will see him in the office in a week. Jose A Osborn DO
== END 2018-03-30 13:05 | disposition home or self-care (01) | DRG 596 ==
LOC: ED 15:53 → ERH 18:54 → 5RSO 22:29
PROVIDERS: ADMIT Family Medicine; ATTEND Family Medicine
DX: L12.0 Bullous pemphigoid (principal); L03.116 Cellulitis of left lower limb; L03.115 Cellulitis of right lower limb; I11.0 Hypertensive heart disease with heart failure; I50.9 Heart failure, unspecified; D64.9 Anemia, unspecified; I67.1 Cerebral aneurysm, nonruptured; I27.20 Pulmonary hypertension, unspecified; I87.8 Other specified disorders of veins; Z87.891 Personal history of nicotine dependence; Z86.711 Personal history of pulmonary embolism

== ENCOUNTER 2018-08-13 13:51 | Inpatient (IN) | payer MEDICARE, OTHER ==
--- NOTE | 2018-08-13 14:31 | ED PDOC ---
Arrival/HPI - General Chief Complaint: Abnormal Skin Integrity Time Seen by Provider: 08/13/18 14:31 Historian: Patient - History of Present Illness Narrative History of Present Illness (Text): 08/13/18 14:55 78 year old male, whose past medical history includes hypertension and CHF, who presents to the ED complaining of boils and skin irritation x 6 weeks. Patient notes boils on abdomen, itchy, red arms and back. Patient states he has experienced this before but never this bad. Patient has been hospitalized for this before. Patient is non-compliant with all medication. Patient denies any fever, chills, SOB, chest pain, or any other complaints. Time/Duration: > month (6 weeks) Symptom Course: Unchanged Activities at Onset: Light Context: Home Past Medical History - Provider Review Nursing Documentation Reviewed: Yes - Infectious Disease Hx of Infectious Diseases: None - Tetanus Immunization Tetanus Immunization: Unknown - Cardiac Hx Cardiac Disorders: Yes Hx Hypertension: Yes - Pulmonary Hx Respiratory Disorders: No - Neurological Hx Neurological Disorder: No - HEENT Hx HEENT Disorder: No - Renal Hx Renal Disorder: No - Endocrine/Metabolic Hx Endocrine Disorders: No - Hematological/Oncological Hx Blood Disorders: No - Integumentary Hx Dermatological Disorder: Yes (GENERALIZED BLISTERING RASH) - Musculoskeletal/Rheumatological Hx Musculoskeletal Disorders: No - Gastrointestinal Hx Gastrointestinal Disorders: No - Genitourinary/Gynecological Hx Genitourinary Disorders: No - Psychiatric Hx Psychophysiologic Disorder: No Hx Substance Use: No - Surgical History Other/Comment: hernia surgery and left shoulder surgery. - Anesthesia Hx Anesthesia Reactions: No Hx Malignant Hyperthermia: No Family/Social History - Physician Review Nursing Documentation Reviewed: Yes Family/Social History: Unknown Family HX Smoking Status: Former Smoker Hx Alcohol Use: No Hx Substance Use: No Allergies/Home Meds Allergies/Adverse Reactions: Allergies No Known Allergies Allergy (Verified 08/13/18 14:24) Home Medications: Home Meds Medication Instructions Recorded Confirmed Carvedilol [Coreg] 12.5 mg PO Q12H 03/29/18 08/13/18 Review of Systems - Physician Review All systems were reviewed & negative as marked: Yes - Review of Systems Constitutional: Normal Eyes: Normal ENT: Normal Respiratory: Normal. absent: SOB, Cough Cardiovascular: Normal. absent: Chest Pain Gastrointestinal: Normal. absent: Abdominal Pain, Diarrhea, Nausea, Vomiting Genitourinary Male: Normal. absent: Frequency, Hematuria Musculoskeletal: Normal. absent: Back Pain, Neck Pain Skin: Rash (abdomen, bilateral upper and lower extremities, back) Neurological: Normal. absent: Headache, Dizziness Endocrine: Normal Hemo/Lymphatic: Normal Psychiatric: Normal Physical Exam - Physical Exam Narrative Physical Exam (Text): 08/13/18 15:04 Gen: NAD, cooperative, well appearing, non-toxic. Head: NCAT. EYES: PERRL, EOMI, conjunctiva clear, EARS: TMs clear MOUTH: moist MM, posterior pharynx without erythema or exudate, uvula midline. CV: tachycardia, (+) S1S2, RRR, no M/G/R LUNGS: CTA B/L, No W/R/R, good air movement Abd: bullae, some ruptured, some bleeding. Errythematous base. Soft, NTTP, no guarding, rebound or rigidity. Back: increased colour, diffused errythematous base. Neuro: AAO x 3, GCS 15, CN 2-12 intact, motor and sensory grossly intact, 5/5 muscle strength B/L UE's and LE's. ext: pedal edema (left worse than rt); excoriation bilateral UE and LE. Vital Signs Reviewed: Yes Vital Signs Temp Pulse Resp BP Pulse Ox 08/13/18 14:22 97.9 F 78 18 171/119 H 98 Temperature: Afebrile Blood Pressure: Hypertensive Pulse: Regular Respiratory Rate: Normal Appearance: Positive for: Well-Appearing, Non-Toxic, Comfortable Pain Distress: None Mental Status: Positive for: Alert and Oriented X 3 Medical Decision Making ED Course and Treatment: 08/13/18 15:09 Impression: 78 year old male presents to the ED complaining of boils and rash to abdomen, back , and lower extremities. Plan: -- Labs -- EKG -- CXR -- Wound Culture -- Blood Culture -- IV Fluids -- US LLE Progress Notes: 08/13/18 15:27 EKG reviewed, shows NSR at 91 bpm. Normal intervals. Normal axis. Occasional PVC's. No ST elevations or depressions. Non-specific wave flattening. 08/13/18 17:[address] Paulino, who is aware and agrees with plan. Accepts pt onto her service. Pt made aware of lab/radiology results and hospital admission. Pt started on Unasyn abx and Benadryl for itching. - Scribe Statement The provider has reviewed the documentation as recorded by the Scribe Christelle Torres All medical record entries made by the Scribe were at my direction and personally dictated by me. I have reviewed the chart and agree that the record accurately reflects my personal performance of the history, physical exam, medical decision making, and the department course for this patient. I have also personally directed, reviewed, and agree with the discharge instructions and disposition. Disposition/Present on Arrival - Present on Arrival History of DVT/PE: No History of Uncontrolled Diabetes: No Urinary Catheter: No History of Decub. Ulcer: No History Surgical Site Infection Following: Abdominal Surgery - Disposition Forms: [employer] (Persian)
--- NOTE | 2018-08-13 15:32 | RAD ---
Date of service: 08/13/2018 HISTORY: pedal edema COMPARISON: 03/28/2018. FINDINGS: LUNGS: The lungs are well inflated and clear. PLEURA: No pleural effusions or pneumothorax. CARDIOVASCULAR: The heart is normal in size. Atherosclerotic aortic arch calcifications are present. OSSEOUS STRUCTURES: Within normal limits for the patient's age. VISUALIZED UPPER ABDOMEN: Normal. OTHER FINDINGS: There is chronic elevation of the left hemidiaphragm. IMPRESSION: No active pulmonary disease.
[2018-08-13 15:47] LABS: VENOUS BLOOD GAS BASE EXCESS 3.1 mmol/L (0.0-2.0); VENOUS BLOOD GAS PO2 27 mm/Hg (30-55); VENOUS BLOOD PH 7.34 (7.32-7.43)
[2018-08-13 15:50] LABS: BASO # 0.02 K/mm3 (0.0-2.0); BASO % 0.2 % (0.0-3.0); EOS # 3.8 (0.0-0.7); EOS % 38.9 % (1.5-5.0); GRAN # 4.08 (1.4-6.5); GRAN % 42.4 % (50.0-68.0); HEMOGLOBIN 12.3 g/dL (14.0-18.0); LYMPH # 1.4 (1.2-3.4); LYMPH % 14.4 % (22.0-35.0); MEAN CELL VOLUME 83.2 fl (80.0-105.0); MEAN CORPUSCULAR HEMOGLOBIN 25.9 pg (25.0-35.0); MEAN CORPUSCULAR HGB CONC 31.1 g/dl (31.0-37.0); MEAN PLATELET VOLUME 9.4 fl (7.0-11.0); MONO # 0.4 (0.1-0.6); MONO % 4.1 % (1.0-6.0); PLATELET COUNT 337 10^3/uL (120.0-450.0); RBC 4.75 10^6/uL (3.5-6.1); WHITE BLOOD COUNT 9.6 10^3/uL (4.5-11.0)
[2018-08-13 16:03] LABS: ALB/GLOB RATIO 1.1 (1.1-1.8); ALBUMIN 3.6 g/dL (3.0-4.8); ALT/SGPT 21 U/L (7-56); AST/SGOT 20 U/L (17-59); BLOOD UREA NITROGEN 16 mg/dL (7-21); CALCIUM 9.1 mg/dL (8.4-10.5); GFR NON-AFRICAN AMERICAN > 60
[2018-08-13 16:10] LABS: B-TYPE NATRIURETIC PEPTIDE 1020 pg/mL (0-450); TROPONIN I < 0.01 ng/mL
[2018-08-13 16:40] LABS: EOSINOPHIL 43 % (0.0-3.0); LYMPHOCYTE 14 % (22.0-35.0); MONOCYTE 6 % (1.0-6.0); NEUTROPHIL 37 % (50.0-70.0)
[2018-08-13 16:41] LABS: OVALOCYTES SLIGHT; PLATELET ESTIMATE NORMAL (NORMAL)
--- NOTE | 2018-08-13 19:03 | CP.PCM.HP ---
History of Present Illness - History of Present Illness History of Present Illness: Ronaldo Chang PGY1 History and Physical for Dr Cedeño Pt is a 78 yo male with a PMH of brain aneurysm, HTN, bullous pemphigoid, and PE who presents to the ED complaining of a rash on his abdomen, back and arms which has gotten previously worse over the past 3 weeks. Pt state he has had the bullous pemphigoid for the past year. Pt is a poor historian. Pt states he has used over the counter lotions and creams but they have only helped minimally. Pt denies any other autoimmune diseases. Pt denies fever, chills, nausea, vomiting, diarrhea, or constipation. Family is at bedside, they are unsure of any other medical problems besides HTN and bullous pemphigoid. A 12 point ROS was obtained and added to the HPI where appropriate. PMD: Dr. Padron PMH: brain aneurysm, HTN, bullous pemphigoid, PE PSH: Hiatal hernia repair SH: alcohol used to drink 12-18 beers a day, quit 10 years ago, tobacco quit 10 years ago, denies illicit drug use Allergies: NKDA Home meds: pt unsure, will have to call pharmacy in the morning Present on Admission - Present on Admission Any Indicators Present on Admission: No Review of Systems - Review of Systems Review of Systems: a 12 point ROS was obtained and added to the HPI where appropriate Past Patient History - Infectious Disease Hx of Infectious Diseases: None - Tetanus Immunizations Tetanus Immunization: Unknown - Past Medical History & Family History Past Medical History?: Yes - Past Social History Smoking Status: Former Smoker - CARDIAC Hx Cardiac Disorders: Yes Hx Hypertension: Yes - PULMONARY Hx Respiratory Disorders: No - NEUROLOGICAL Hx Neurological Disorder: No - HEENT Hx HEENT Problems: No - RENAL Hx Chronic Kidney Disease: No - ENDOCRINE/METABOLIC Hx Endocrine Disorders: No - HEMATOLOGICAL/ONCOLOGICAL Hx Blood Disorders: No - INTEGUMENTARY Hx Dermatological Problems: Yes (GENERALIZED BLISTERING RASH) - MUSCULOSKELETAL/RHEUMATOLOGICAL Hx Musculoskeletal Disorders: No - GASTROINTESTINAL Hx Gastrointestinal Disorders: No - GENITOURINARY/GYNECOLOGICAL Hx Genitourinary Disorders: No - PSYCHIATRIC Hx Psychophysiologic Disorder: No Hx Substance Use: No - SURGICAL HISTORY Other/Comment: hernia surgery and left shoulder surgery. - ANESTHESIA Hx Anesthesia Reactions: No Hx Malignant Hyperthermia: No Meds Allergies/Adverse Reactions: Allergies Allergy/AdvReac Type Severity Reaction Status Date / Time No Known Allergies Allergy Verified 08/13/18 14:24 Physical Exam - Constitutional Appears: Non-toxic, No Acute Distress - Head Exam Head Exam: ATRAUMATIC, NORMAL INSPECTION, NORMOCEPHALIC - Eye Exam Eye Exam: EOMI - ENT Exam ENT Exam: Mucous Membranes Moist - Respiratory Exam Respiratory Exam: Clear to Auscultation Bilateral, NORMAL BREATHING PATTERN. absent: Accessory Muscle Use - Cardiovascular Exam Cardiovascular Exam: RRR, +S1, +S2. absent: Diastolic murmur, Systolic Murmur - GI/Abdominal Exam GI & Abdominal Exam: Normal Bowel Sounds, Soft - Extremities Exam Extremities exam: Positive for: normal inspection, pedal pulses present. Negative for: calf tenderness, full ROM, pedal edema, tenderness - Neurological Exam Neurological exam: Alert, CN II-XII Intact - Psychiatric Exam Psychiatric exam: Normal Affect, Normal Mood - Skin Skin Exam: Dry, Intact, Normal Color Results - Vital Signs Recent Vital Signs: Last Vital Signs Temp 97.9 F 08/13/18 14:22 Pulse 92 H 08/13/18 18:22 Resp 18 08/13/18 18:22 BP 118/77 08/13/18 18:22 Pulse Ox 95 08/13/18 18:22 - Labs Result Diagrams: 08/13/18 15:40 08/13/18 15:40 Labs: Laboratory Results - last 24 hr 08/13/18 08/13/18 08/13/18 15:40 15:40 15:40 WBC 9.6 RBC 4.75 Hgb 12.3 L Hct 39.5 L MCV 83.2 MCH 25.9 MCHC 31.1 RDW 17.0 H Plt Count 337 MPV 9.4 Gran % 42.4 L Lymph % (Auto) 14.4 L [place] % (Auto) 4.1 Eos % (Auto) 38.9 H Baso % (Auto) 0.2 Gran # 4.08 Lymph # (Auto) 1.4 [place] # (Auto) 0.4 Eos # (Auto) 3.8 H Baso # (Auto) 0.02 Neutrophils % (Manual) 37 L Lymphocytes % (Manual) 14 L Monocytes % (Manual) 6 Eosinophils % (Manual) 43 H Platelet Evaluation Normal Ovalocytes Slight pO2 27 L VBG pH 7.34 VBG pCO2 56.0 VBG HCO3 30.2 H VBG O2 Sat (Calc) 49.9 VBG Base Excess 3.1 H Sodium 140 Potassium 4.8 Chloride 105 Carbon Dioxide 27 Anion Gap 12 BUN 16 Creatinine 1.0 Est GFR ( Amer) > 60 Est GFR (Non-Af Amer) > 60 Random Glucose 121 H Calcium 9.1 Magnesium 2.2 Total Bilirubin 0.4 AST 20 ALT 21 Alkaline Phosphatase 88 Troponin I < 0.01 NT-Pro-B Natriuret Pep 1020 H Total Protein 6.9 Albumin 3.6 Globulin 3.3 Albumin/Globulin Ratio 1.1 Assessment & Plan - Assessment and Plan (Free Text) Assessment: Pt is a 78 yo male with a PMH of brain aneurysm, HTN, bullous pemphigoid, and PE who presents to the ED complaining of a rash on his abdomen, back and arms which has gotten previously worse over the past 3 weeks. Pt state he has had the bullous pemphigoid for the past year. Plan: Bullous Pemphigoid - blood cultures follow up - wound cultures follow up - unasyn given in ED - vancomycin - recephin - Benadryl given in ED - decadron - ID consulted HTN - continue to monitor - normotensive at this time Ppx - protonix - scds - HHD Pt seen, examined, assessment and plan discussed with Dr Davidson Chang PGY1 - Date & Time Date: 08/13/18 Time: 19:52
[2018-08-13 20:03] VITALS: BMI 29.8
[2018-08-14] MEDS: Pantoprazole 40 mg EC Tab PO SCH (06:12)
[2018-08-14] MEDS ORDERED: Permethrin 5% Cream(60 gm) TOP ONE (07:19)
[2018-08-14 07:40] LABS: BASO # 0.02 K/mm3 (0.0-2.0); BASO % 0.2 % (0.0-3.0); EOS # 3.6 (0.0-0.7); EOS % 44.6 % (1.5-5.0); GRAN # 2.72 (1.4-6.5); GRAN % 33.6 % (50.0-68.0); HEMOGLOBIN 10.9 g/dL (14.0-18.0); LYMPH # 1.2 (1.2-3.4); LYMPH % 14.9 % (22.0-35.0); MEAN CELL VOLUME 82.3 fl (80.0-105.0); MEAN CORPUSCULAR HGB CONC 30.4 g/dl (31.0-37.0); MEAN PLATELET VOLUME 9.3 fl (7.0-11.0); MONO # 0.5 (0.1-0.6); MONO % 6.7 % (1.0-6.0); RBC 4.36 10^6/uL (3.5-6.1); RED CELL DISTRIBUTION WIDTH 17.1 % (11.5-14.5); WHITE BLOOD COUNT 8.1 10^3/uL (4.5-11.0)
[2018-08-14 08:43] LABS: ALBUMIN 2.8 g/dL (3.0-4.8); ALT/SGPT 18 U/L (7-56); AST/SGOT 23 U/L (17-59); BLOOD UREA NITROGEN 16 mg/dL (7-21); CALCIUM 8.3 mg/dL (8.4-10.5); GFR NON-AFRICAN AMERICAN > 60
--- NOTE | 2018-08-14 10:12 | CARD ---
APPROVED REPORT Date of service: 08/13/2018 EKG Measurement Heart [id number] <Conclusion> Sinus rhythm with PVCs LAD QS in V1, septal MT, old No change c/w ECG 03/28/18
[2018-08-14] MEDS: Vancomycin 1gm in NS 250ml 1 GM/250 ML BAG IVPB SCH (10:16)
[2018-08-14] MEDS: cefTRIAXone 1 gm 1 GM/100 ML BAG IVPB SCH (10:17)
--- NOTE | 2018-08-14 10:36 | US ---
PROCEDURE: Left lower extremity venous US HISTORY: Leg pain and swelling. Evaluate for DVT. PHYSICIAN(S): Silvino Barbour MD. TECHNIQUE: Duplex sonography and color-flow Doppler with graded compression were used to evaluate the deep venous system of the left lower extremity. FINDINGS: The visualized deep venous system of the left lower extremity is sonographically normal and compressible. Normal wave forms and augmentation are seen. There is no sonographic evidence for deep venous thrombosis in the visualized segments of the left lower extremity. IMPRESSION: 1. No sonographic evidence for deep venous thrombosis in the visualized segments of the left lower extremity.
[2018-08-14] MEDS ORDERED: Permethrin 1% Kit 59 ML BOTTLE TOP ONE (11:16)
--- NOTE | 2018-08-14 14:57 | CON ---
DATE: 08/14/2018 The patient is seen earlier today in 574. CHIEF COMPLAINT: The patient has a rash times several days. HISTORY OF PRESENT ILLNESS: This is 78-year-old male with past medical history of significant for bullous pemphigoid, hypertension and TIA. He has been hospitalized for bullous pemphigoid in the past. He also has a history of brain aneurysm and pulmonary emboli. He was seen in the emergency room by Asaf. The patient was admitted with chief complaints of abnormal skin integrity and the patient has also complained of itching in the arms, his legs and he has had that for sometime. There has been no fevers and no chills. No chest pain. No abdominal pain, diarrhea or constipation. No bright red blood per rectum. No melena. REVIEW OF SYSTEMS: A 12-point review of system is performed. PAST MEDICAL HISTORY: Significant for hypertension, congestive heart failure, TIA, bullous pemphigoid, brain aneurysm and pulmonary emboli. PAST SURGICAL HISTORY: Significant for hiatal hernia surgery. ALLERGIES: THE PATIENT HAS NO KNOWN ALLERGIES. HOME MEDICATIONS: Reveals, the patient to be on Coreg. PHYSICAL EXAMINATION: VITAL SIGNS: He is in bed with a temperature of 97, heart rate of 92, blood pressure is 118/77, examination of respiratory rate is 18 and the patient saturating at 98%. HEENT: Unremarkable. NECK: Supple. LUNGS: Have decreased breath sounds. HEART: Normal S1 and S2. ABDOMEN: Soft and nontender. SKIN: Reveals the patient has bullous pemphigoid on his abdomen and his thighs. In the abdomen, he has bacterial superinfection, but in addition to that the patient has excoriation, itching, scratching from all the itching of different parts throughout his body. LABORATORY DATA: Reveals a white count of 9000; however, he does have 43% eosinophils and chemistries are noted with a BUN of 16 and creatinine 1.0. His BNP is 1020. Microbiology reveals a cultures are pending. Review of cultures from old microbiology reveals there is coag negative Staph and chest x-ray is reported to negative and clear. Emergency room chart is reviewed. History of physical examination is reviewed. The patient is currently on vancomycin and Rocephin. Lab studies are ordered. Blood cultures are ordered. SOCIAL HISTORY: Reveals, the patient had lived by himself. ASSESSMENT AND PLAN: This is 78-year-old with hypertension, congestive heart failure, transient ischemic attack, bullous pemphigoid, brain aneurysm, pulmonary emboli with bullous pemphigoid with bacterial superinfection on top of probable scabies two different entities is itching. Bullous pemphigoid does not cause itching and he has got significant itching in classic areas of scabies. We will treat the scabies, isolate the patient and keep the patient on vanco and Rocephin. Will need a short course of antibiotics, may be able to switch to p.o. and we will follow with you and we will check on the culture results. Hernandez Krishnamurthy MD
--- NOTE | 2018-08-14 21:57 | CP.PCM.PN ---
Subjective - Date & Time of Evaluation Date of Evaluation: 08/14/18 Time of Evaluation: 06:00 - Subjective Subjective: Pt seen and examined at bedside. Reports itchiness, no new complaints. Objective - Vital Signs/Intake and Output Vital Signs (last 24 hours): Temp Pulse Resp BP Pulse Ox 98 F 81 20 118/71 95 08/14/18 08:23 08/14/18 08:23 08/14/18 08:23 08/14/18 08:23 08/14/18 08:23 - Medications Medications: Current Medications Vancomycin HCl (Vancomycin 1gm) 1 gm in 250 mls @ 167 mls/hr IVPB DAILY [facility]; Protocol Last Admin: 08/14/18 10:16 Dose: 167 mls/hr Ceftriaxone Sodium (Rocephin 1 Gram Ivpb) 1 gm in 100 mls @ 100 mls/hr IVPB DAILY [facility]; Protocol Last Admin: 08/14/18 10:17 Dose: 100 mls/hr Pantoprazole Sodium (Protonix Ec Tab) 40 mg PO 0600 [facility] Last Admin: 08/14/18 06:12 Dose: 40 mg Prednisone (Prednisone Tab) 50 mg PO DAILY [facility] Last Admin: 08/14/18 10:17 Dose: 50 mg - Labs Labs: 08/14/18 07:20 08/14/18 07:20 - Constitutional Appears: No Acute Distress - Head Exam Head Exam: ATRAUMATIC, NORMAL INSPECTION - Eye Exam Eye Exam: EOMI. absent: Scleral icterus - ENT Exam ENT Exam: Mucous Membranes Moist, Normal Exam - Neck Exam Neck Exam: Full ROM - Respiratory Exam Respiratory Exam: Clear to Ausculation Bilateral, NORMAL BREATHING PATTERN. absent: Wheezes, Respiratory Distress - Cardiovascular Exam Cardiovascular Exam: RRR, +S1, +S2. absent: Murmur - GI/Abdominal Exam GI & Abdominal Exam: Soft, Normal Bowel Sounds. absent: Tenderness Additional comments: diffuse bullouses in various stages of healing noted throughout abdomen - Extremities Exam Extremities Exam: Full ROM, Normal Capillary Refill. absent: Calf Tenderness, Pedal Edema - Back Exam Additional comments: diffuse erythematous rash - Neurological Exam Neurological Exam: Alert, Awake Neuro motor strength exam: Left Upper Extremity: 4 (associated residual in Left 4th and 5th digits), Right Upper Extremity: 5, Left Lower Extremity: 5, Right Lower Extremity: 5 - Psychiatric Exam Psychiatric exam: Normal Affect, Normal Mood - Skin Skin Exam: Rash, Vesicles, Warm Assessment and Plan - Assessment and Plan (Free Text) Assessment: Pt is a 78 yo male with a PMH of brain aneurysm, HTN, bullous pemphigoid, and PE who presents to the ED complaining of a rash on his abdomen, back and arms which has gotten previously worse over the past 3 weeks. Pt state he has had the bullous pemphigoid for the past year. Plan: Bullous Pemphigoid - blood cultures negative 24 hours - wound cultures abdomen: gram positive cocci - continue vancomycin 1gm IVPB daily - continue recephin 1gm IVPB daily - Benadryl given in ED - prednisone 50 mg PO daily - ID, Dr. Krishnamurthy following; pt has superimposed abdominal infection with probable scabies. Permethrin 5% topical cream and lice elimination kit given. Isolate patient and continue iv antibiotics. HTN - continue to monitor - normotensive at this time Ppx - protonix - scds - HHD
[2018-08-15] MEDS: Pantoprazole 40 mg EC Tab PO SCH (06:35)
[2018-08-15 07:10] LABS: ALBUMIN 3.2 g/dL (3.0-4.8); ALT/SGPT 15 U/L (7-56); AST/SGOT 22 U/L (17-59); BLOOD UREA NITROGEN 16 mg/dL (7-21); CALCIUM 8.6 mg/dL (8.4-10.5); GFR NON-AFRICAN AMERICAN > 60
[2018-08-15 07:17] LABS: BASO # 0.02 K/mm3 (0.0-2.0); BASO % 0.3 % (0.0-3.0); EOS # 0.9 (0.0-0.7); EOS % 13.4 % (1.5-5.0); GRAN # 3.77 (1.4-6.5); GRAN % 56.9 % (50.0-68.0); HEMOGLOBIN 10.6 g/dL (14.0-18.0); LYMPH # 1.5 (1.2-3.4); LYMPH % 22.2 % (22.0-35.0); MEAN CELL VOLUME 82.9 fl (80.0-105.0); MEAN CORPUSCULAR HEMOGLOBIN 25.5 pg (25.0-35.0); MEAN CORPUSCULAR HGB CONC 30.8 g/dl (31.0-37.0); MEAN PLATELET VOLUME 9.8 fl (7.0-11.0); MONO # 0.5 (0.1-0.6); MONO % 7.2 % (1.0-6.0); RBC 4.15 10^6/uL (3.5-6.1); WHITE BLOOD COUNT 6.6 10^3/uL (4.5-11.0)
[2018-08-15 07:49] VITALS: BP 167/77; PULSE 87; RESP 18; TEMP 98.4; O2SAT 97
[2018-08-15] MEDS: cefTRIAXone 1 gm 1 GM/100 ML BAG IVPB SCH (09:29)
[2018-08-15] MEDS: Vancomycin 1gm in NS 250ml 1 GM/250 ML BAG IVPB SCH (09:30)
--- NOTE | 2018-08-15 18:07 | CP.PCM.DIS ---
Provider - Provider Date of Admission: 08/13/18 17:56 Attending physician: Silviano Dunn MD Time Spent in preparation of Discharge (in minutes): 35 Diagnosis - Discharge Diagnosis (1) Bullous pemphigoid Status: Chronic Priority: High (2) History of CVA with residual deficit Status: Chronic Priority: Medium (3) HTN (hypertension) Status: Acute Priority: High Hospital Course - Lab Results Lab Results: Micro Results 08/13/18 16:00 Blood-Venous Blood Culture - Preliminary NO GROWTH AFTER 48 HOURS 08/13/18 15:40 Blood-Venous Blood Culture - Preliminary NO GROWTH AFTER 48 HOURS 08/13/18 15:40 Abdomen Gram Stain - Final 08/13/18 15:40 Abdomen Wound Culture - Final Staphylococcus Aureus Most Recent Lab Values WBC 6.6 10^3/uL (4.5-11.0) 08/15/18 06:20 RBC 4.15 10^6/uL (3.5-6.1) 08/15/18 06:20 Hgb 10.6 g/dL (14.0-18.0) L 08/15/18 06:20 Hct 34.4 % (42.0-52.0) L 08/15/18 06:20 MCV 82.9 fl (80.0-105.0) 08/15/18 06:20 MCH 25.5 pg (25.0-35.0) 08/15/18 06:20 MCHC 30.8 g/dl (31.0-37.0) L 08/15/18 06:20 RDW 17.0 % (11.5-14.5) H 08/15/18 06:20 Plt Count 315 10^3/uL (120.0-450.0) 08/15/18 06:20 MPV 9.8 fl (7.0-11.0) 08/15/18 06:20 Gran % 56.9 % (50.0-68.0) 08/15/18 06:20 Lymph % (Auto) 22.2 % (22.0-35.0) 08/15/18 06:20 Taney % (Auto) 7.2 % (1.0-6.0) H 08/15/18 06:20 Eos % (Auto) 13.4 % (1.5-5.0) H 08/15/18 06:20 Baso % (Auto) 0.3 % (0.0-3.0) 08/15/18 06:20 Gran # 3.77 (1.4-6.5) 08/15/18 06:20 Lymph # (Auto) 1.5 (1.2-3.4) 08/15/18 06:20 Taney # (Auto) 0.5 (0.1-0.6) 08/15/18 06:20 Eos # (Auto) 0.9 (0.0-0.7) H 08/15/18 06:20 Baso # (Auto) 0.02 K/mm3 (0.0-2.0) 08/15/18 06:20 Neutrophils % (Manual) 37 % (50.0-70.0) L 08/13/18 15:40 Lymphocytes % (Manual) 14 % (22.0-35.0) L 08/13/18 15:40 Monocytes % (Manual) 6 % (1.0-6.0) 08/13/18 15:40 Eosinophils % (Manual) 43 % (0.0-3.0) H 08/13/18 15:40 Platelet Evaluation Normal (NORMAL) 08/13/18 15:40 Ovalocytes Slight 08/13/18 15:40 pO2 27 mm/Hg (30-55) L 08/13/18 15:40 VBG pH 7.34 (7.32-7.43) 08/13/18 15:40 VBG pCO2 56.0 (40-60) 08/13/18 15:40 VBG HCO3 30.2 mmol/l (21-28) H 08/13/18 15:40 VBG O2 Sat (Calc) 49.9 % (40-65) 08/13/18 15:40 VBG Base Excess 3.1 mmol/L (0.0-2.0) H 08/13/18 15:40 Sodium 142 mmol/L (132-148) 08/15/18 06:20 Potassium 3.7 mmol/L (3.6-5.0) 08/15/18 06:20 Chloride 109 mmol/L (98-107) H 08/15/18 06:20 Carbon Dioxide 29 mmol/L (21-33) 08/15/18 06:20 Anion Gap 9 (10-20) L 08/15/18 06:20 BUN 16 mg/dL (7-21) 08/15/18 06:20 Creatinine 0.7 mg/dl (0.8-1.5) L 08/15/18 06:20 Est GFR ( Amer) > 60 08/15/18 06:20 Est GFR (Non-Af Amer) > 60 08/15/18 06:20 Random Glucose 93 mg/dL (70-110) 08/15/18 06:20 Calcium 8.6 mg/dL (8.4-10.5) 08/15/18 06:20 Magnesium 2.2 mg/dL (1.7-2.2) 08/13/18 15:40 Total Bilirubin 0.3 mg/dL (0.2-1.3) 08/15/18 06:20 AST 22 U/L (17-59) 08/15/18 06:20 ALT 15 U/L (7-56) 08/15/18 06:20 Alkaline Phosphatase 74 U/L (38-126) 08/15/18 06:20 Troponin I < 0.01 ng/mL 08/13/18 15:40 NT-Pro-B Natriuret Pep 1020 pg/mL (0-450) H 08/13/18 15:40 Total Protein 6.4 g/dL (5.8-8.3) 08/15/18 06:20 Albumin 3.2 g/dL (3.0-4.8) 08/15/18 06:20 Globulin 3.1 gm/dL 08/15/18 06:20 Albumin/Globulin Ratio 1.0 (1.1-1.8) L 08/15/18 06:20 - Hospital Course Hospital Course: Pt is a 78 yo male with a PMH of brain aneurysm, HTN, bullous pemphigoid, and PE who presented to the ED on 08/13/18 complaining of a rash on his abdomen, back and arms which had gotten progressively worse over the prior 3 weeks. Pt also admitted to associated pruritis in his extremities. Pt stated he had bullous pemphigoid for the past year and had been hospitalized for it in the past. . Pt stated he had used over the counter lotions and creams but they have only helped minimally. Pt denied any other autoimmune diseases. Pt denied fever, chills, nausea, vomiting, diarrhea, or constipation. In the ED, pt was given unasyn and benadryl. On admission, patient was started on IV vancomycin and IV rocephin as well as oral steroids. Blood cultures were negative. Wound cultures from the abdomen grew staph aureus sensitive to clindamycin. Infectious disease was consulted. Pt likely had bullous pemphigoid with bacterial superinfection in addition to scabies. Pt was placed on isolation and treated for scabies with permethrin 5% topical cream and lice elimination kit. Pts pruritis continued to improve. Pt was discharged on oral Clindamycin 300 mg TID for 9 days and prednisone taper. Pt was instructed to follow up with his PCP and return to the ED if symptoms worsen. - Date & Time of H&P Date of H&P: 08/15/18 Time of H&P: 07:00 Discharge Exam - Head Exam Head Exam: ATRAUMATIC, NORMAL INSPECTION - Eye Exam Eye Exam: EOMI - ENT Exam ENT Exam: Mucous Membranes Moist - Respiratory Exam Respiratory Exam: NORMAL BREATHING PATTERN, UNREMARKABLE. absent: Accessory Muscle Use, Wheezes, Respiratory Distress - Cardiovascular Exam Cardiovascular Exam: RRR, +S1, +S2. absent: Diastolic murmur, Systolic Murmur - GI/Abdominal Exam GI & Abdominal Exam: Normal Bowel Sounds, Soft, Unremarkable - Extremities Exam Extremities exam: full ROM, pedal edema, pedal pulses present - Neurological Exam Neurological exam: Alert, Oriented x3 - Psychiatric Exam Psychiatric exam: Normal Affect, Normal Mood Discharge Plan - Discharge Medications Prescriptions: Clindamycin [Cleocin] 300 mg PO TID #9 cap Prednisone 10 mg PO DAILY #20 tab.ds.pk - Follow Up Plan Condition: GOOD Disposition: HOME/ ROUTINE Instructions: Cellulitis and Erysipelas (Skin Infections) Additional Instructions: 1. please follow up with your primary care physician within 1 week 2. please take your antibiotics as directed 3. please take your steroid taper as directed 4. follow up with a aeronautics teacher as an out patient 5. if your symptoms return or worsen, please go to the nearest emergency department
--- NOTE | 2018-08-15 20:49 | PN ---
DATE: 08/15/2018 SUBJECTIVE: Patient in bed, in no acute distress. PHYSICAL EXAMINATION: VITAL SIGNS: Temperature is 98, blood pressure is 160/70, respiratory rate of 20, heart rate of 87. HEENT: Unremarkable. NECK: Supple. LUNGS: Have decreased breath sounds. HEART: Normal S1 and S2. ABDOMEN: Soft, nontender. SKIN: Erythema has completely resolved. LABORATORY DATA: Laboratory examination reveals a white count of 6, hemoglobin of 10, platelets of 315. BUN of 16 and creatinine of 0.7. Microbiology reveals the blood cultures are negative. The abdominal cultures is a sensitive Staph, sensitive to doxycycline and oxacillin. ASSESSMENT AND PLAN: This is a 78-year-old male with history of bullous pemphigoid, hypertension, transient ischemic attacks, who has been hospitalized for bullous pemphigoid in the past with brain aneurysm and pulmonary emboli, who was seen in the emergency room with bullous pemphigoid with bacterial superinfection, which has resolved, concerned about scabies. Patient was treated yesterday. Orders were written for 7 o'clock, patient received by the afternoon. Can discontinue the isolation at this point and change the ceftriaxone and p.o. Keflex. We can also discontinue the IV vancomycin and IV ceftriaxone and discontinue the isolation. May complete the Keflex 250 mg p.o. x3 days and discontinue isolation. Thus far, the blood cultures are reported to be negative and from the Infectious Disease point of view, the patient may be discharged. From Infectious Disease point of view, he has been treated for both Staphylococcus and scabies in a patient who has history of hypertension, transient ischemic attack, bullous pemphigoid and pulmonary emboli. Hernandez Krishnamurthy MD
== END 2018-08-15 18:55 | disposition home or self-care (01) | DRG 607 ==
LOC: ED 13:51 → ERH 17:56 → 5RSO 18:47 → 5RNO 08-14 22:51
PROVIDERS: ADMIT Hospitalist; ATTEND Internal Medicine
DX: B86 Scabies (principal); L12.0 Bullous pemphigoid; L02.221 Furuncle of abdominal wall; L02.222 Furuncle of back [any part, except buttock and flank]; L02.429 Furuncle of limb, unspecified; B95.61 Methicillin susceptible Staphylococcus aureus infection as the cause of diseases classified elsewhere; I11.0 Hypertensive heart disease with heart failure; I50.9 Heart failure, unspecified; Z86.711 Personal history of pulmonary embolism; I69.30 Unspecified sequelae of cerebral infarction; Z87.891 Personal history of nicotine dependence; Z91.19 Patient's noncompliance with other medical treatment and regimen

== ENCOUNTER 2018-11-13 22:21 | Inpatient (IN) | payer MEDICARE, OTHER ==
--- NOTE | 2018-11-13 22:39 | ED PDOC ---
Arrival/HPI - General Chief Complaint: Lower Extremity Problem/Injury Time Seen by Provider: 11/13/18 22:35 Historian: Patient, Family - History of Present Illness Narrative History of Present Illness (Text): 11/13/18 22:39 Raymond Forbes is a 78 year old male, whose past medical history includes brain aneurysm, hypertension, bullous pemphigoid, and pulmonary embolism, who presents to the Emergency department complaining of leg swelling. Patient states he has been experiencing bilateral lower extremity swelling, worsening skin lesions, and dyspnea on exertion. Patient denies any fever, chills, chest pain, nausea, vomiting, diarrhea, urinary symptoms, back pain, neck pain, headache, dizziness, or any other complaints. PMD: Dr. Padron Symptom Onset: Gradual Symptom Course: Unchanged Activities at Onset: Light Context: Home Past Medical History - Provider Review Nursing Documentation Reviewed: Yes - Infectious Disease Hx of Infectious Diseases: None - Tetanus Immunization Tetanus Immunization: Unknown - Cardiac Hx Cardiac Disorders: Yes Hx Hypertension: Yes - Pulmonary Hx Respiratory Disorders: No - Neurological Hx Neurological Disorder: No - HEENT Hx HEENT Disorder: No - Renal Hx Renal Disorder: No - Endocrine/Metabolic Hx Endocrine Disorders: No - Hematological/Oncological Hx Blood Disorders: No - Integumentary Hx Dermatological Disorder: Yes (GENERALIZED BLISTERING RASH) - Musculoskeletal/Rheumatological Hx Musculoskeletal Disorders: No - Gastrointestinal Hx Gastrointestinal Disorders: No - Genitourinary/Gynecological Hx Genitourinary Disorders: No - Psychiatric Hx Psychophysiologic Disorder: No Hx Substance Use: No - Surgical History Other/Comment: hernia surgery and left shoulder surgery. - Anesthesia Hx Anesthesia Reactions: No Hx Malignant Hyperthermia: No Family/Social History - Physician Review Nursing Documentation Reviewed: Yes Family/Social History: Unknown Family HX Smoking Status: Former Smoker Hx Alcohol Use: No Hx Substance Use: No Allergies/Home Meds Allergies/Adverse Reactions: Allergies No Known Allergies Allergy (Verified 08/13/18 14:24) Home Medications: Home Meds Medication Instructions Recorded Confirmed Carvedilol [Coreg] 12.5 mg PO Q12H 03/29/18 08/13/18 Review of Systems - Physician Review All systems were reviewed & negative as marked: Yes - Review of Systems Constitutional: Normal. absent: Fevers Eyes: Normal ENT: Normal Respiratory: Normal. absent: SOB, Cough Cardiovascular: CLARK. absent: Chest Pain Gastrointestinal: Normal. absent: Abdominal Pain, Diarrhea, Nausea, Vomiting Genitourinary Male: Normal. absent: Dysuria, Frequency, Hematuria, Urinary Output Changes Musculoskeletal: Other (+bilateral lower extremity swelling). absent: Back Pain, Neck Pain Skin: Rash Neurological: Normal. absent: Headache, Dizziness Endocrine: Normal Hemo/Lymphatic: Normal Psychiatric: Normal Physical Exam Vital Signs Reviewed: Yes Temperature: Afebrile Blood Pressure: Normal Pulse: Regular Respiratory Rate: Normal Appearance: Positive for: Well-Appearing, Non-Toxic, Comfortable Pain Distress: None Mental Status: Positive for: Alert and Oriented X 3 - Systems Exam Head: Present: Atraumatic, Normocephalic Pupils: Present: PERRL Extroacular Muscles: Present: EOMI Conjunctiva: Present: Normal Mouth: Present: Moist Mucous Membranes Neck: Present: Normal Range of Motion Respiratory/Chest: Present: Good Air Exchange, Rhonchi. No: Respiratory Distress, Accessory Muscle Use Cardiovascular: Present: Regular Rate and Rhythm, Normal S1, S2. No: Murmurs Abdomen: No: Tenderness, Distention, Peritoneal Signs Back: Present: Normal Inspection Upper Extremity: Present: Normal Inspection. No: Cyanosis, Edema Lower Extremity: Present: Edema (Chronic non-pitting edema) Neurological: Present: GCS=15, CN II-XII Intact, Speech Normal Skin: Present: Warm, Dry, Rashes (Scattered diffuse excoriations with scabbed lesions, erythema to posterior thorax with denuded skin), Normal Color Psychiatric: Present: Alert, Oriented x 3, Normal Insight, Normal Concentration Medical Decision Making ED Course and Treatment: 11/13/18 22:39 Impression: 78 year old male complaining of bilateral lower extremity swelling, occasional dyspnea on exertion, and worsening skin lesions. Plan: -- EKG -- Chest X-ray -- US Duplex Lower Extremities -- Labs, cardiac enzymes, BNP, blood cultures -- Wound cultures -- Reassess and disposition Prior Visits: Notes and results from previous visits were reviewed. Progress Notes: Reviewed EKG, NSR at 88 bpm. Occasional PAC. Non-specific ST/T wave changes. 11/13/18 23:27 Chest X-ray reviewed, slight rotated shows slightly increased pulmonary vascular changes. 11/14/18 01:15 US Duplex Lower Extremity preliminary read negative for DVT. 11/14/18 01:[address] Shanks, who is aware and agrees with plan. Accepts pt in to hospitalist service. Pt will go to Telemetry observation for CHF, bullous pemphigoid, and cellulitis, - EKG Interpretation Interpreted by ED Physician: Yes Type: 12 lead EKG - Scribe Statement The provider has reviewed the documentation as recorded by the Bubbaibe Fozia Judd Provider Scribe Attestation: All medical record entries made by the Scribe were at my direction and personally dictated by me. I have reviewed the chart and agree that the record accurately reflects my personal performance of the history, physical exam, medical decision making, and the department course for this patient. I have also personally directed, reviewed, and agree with the discharge instructions and disposition. Disposition/Present on Arrival - Present on Arrival Any Indicators Present on Arrival: No History of DVT/PE: No History of Uncontrolled Diabetes: No Urinary Catheter: No History of Decub. Ulcer: No History Surgical Site Infection Following: None - Disposition Have Diagnosis and Disposition been Completed?: Yes Diagnosis: Bullous pemphigoid, CHF (congestive heart failure), Cellulitis Disposition: HOSPITALIZED Disposition Time: 01:18 Patient Problems: Current Active Problems Problem Status Onset CHF (congestive heart failure) Acute Cellulitis Acute Bullous pemphigoid Chronic Condition: STABLE Discharge Instructions (ExitCare): Heart Failure (ED), Cellulitis (ED) Referrals: Markie Padron MD [Primary Care Provider] - Follow up with primary Forms: Portable Internet (Mongolian)
[2018-11-14 00:23] LABS: HEMOGLOBIN 9.2 g/dL (14.0-18.0); MEAN CORPUSCULAR HEMOGLOBIN 23.6 pg (25.0-35.0); MEAN PLATELET VOLUME 8.9 fl (7.0-11.0); RBC 3.9 10^6/uL (3.5-6.1); RED CELL DISTRIBUTION WIDTH 17.2 % (11.5-14.5)
[2018-11-14 00:25] LABS: INR 1.2; PARTIAL THROMBOPLASTIN TIME 31.7 Seconds (26.9-38.3); PROTHROMBIN TIME 13.3 SECONDS (9.4-12.5)
[2018-11-14 00:30] LABS: MEAN CELL VOLUME 78.7 fl (80.0-105.0)
[2018-11-14 00:33] LABS: ALB/GLOB RATIO 0.8 (1.1-1.8); ALBUMIN 3.2 g/dL (3.0-4.8); ALT/SGPT 19 U/L (7-56); AST/SGOT 24 U/L (17-59); BLOOD UREA NITROGEN 13 mg/dL (7-21); CALCIUM 8.6 mg/dL (8.4-10.5); GFR NON-AFRICAN AMERICAN > 60
[2018-11-14 00:45] LABS: B-TYPE NATRIURETIC PEPTIDE 3770 pg/mL (0-450); TROPONIN I 0.03 ng/mL
[2018-11-14] MEDS ORDERED: Vancomycin 1gm in NS 250ml 1 GM/250 ML BAG IVPB STA (01:12)
--- NOTE | 2018-11-14 02:11 | CP.PCM.HP ---
<Zachary Altman - Last Filed: 11/14/18 05:49> History of Present Illness - History of Present Illness History of Present Illness: Medicine History and Physical for Hospitalist Service, Dr. Dimitris Altman, DO PGY-1 This is a 78 y o male with PMhx brain aneurysm, HTN, bullous pemphigoid dx 1 y ago, and PE, who presents to the ED with c/o worsening rash, b/l LE swelling, and dyspnea on exertion. States that he has had flare-ups of his bullous pemphigoid in the past, states that this most recent flare-up started 3-4 weeks ago, denies any inciting factors, denies recent URI or flu-like symptoms, or any hx of sick contacts. States the rash is present all over his body and itchy, states that the worst location of his symptoms is his posterior upper thighs b/l. Admits to noticing pus as well, reports popping his bullae and clear fluid being expressed. States that his b/l LE edema and dyspnea on exertion have been present for the past week and that is why he decided to come to the ER to be evaluated. Reports non-productive cough, states that he feels like phlegm is st uck in his chest. Denies fevers or chills. Denies changes in PO appetite, dizziness, headache, chest pain, n/v/d/c, abd pain, urinary complaints, or other symptoms. Pt states he was given referral to see a group home manager for his Bullous Pemphigoid by his PCP but states that he was unable to go to his appt because the doctor he was referred to was retired. States he does not follow up with a Guest Relations Associate outpatient. PMhx: brain aneurysm, HTN, bullous pemphigoid dx 1 y ago, and PE PSurgHx: hiatal hernia repair 25 y ago Allergies: NKDA Home meds: pt states he is on HTN medicine, unsure of dose in mg, states he takes it twice daily; reports he ran out of HTN medicine 4 days ago Fam hx: denies Soc hx: former smoker 2 ppd x 15-20 y; former chronic EtOH drinker; denies illicit drug use; retired, used to own [employer], lives at home alone in 1st floor apartment, ambulates with cane PMD: Dr. Padron Home pharmacy: unknown as per pt Present on Admission - Present on Admission Any Indicators Present on Admission: Yes History of DVT/PE: Yes History of Uncontrolled Diabetes: No Urinary Catheter: No Decubitus Ulcer Present: No Review of Systems - Constitutional Constitutional: Fatigue. absent: Chills, Fever, Headache, Night Sweats, Weight Gain, Weight Loss - Cardiovascular Cardiovascular: Dyspnea on Exertion, Leg Edema. absent: Chest Pain, Diaphoresis, Palpitations - Respiratory Respiratory: Cough, Dyspnea, Dyspnea on Exertion, Chest Congestion. absent: Wheezing, Pain on Inspiration, Pain with Coughing - Gastrointestinal Gastrointestinal: absent: Abdominal Pain, Constipation, Diarrhea, Nausea, Vomiting - Genitourinary Genitourinary: absent: Change in Urinary Stream, Difficulty Urinating, Dysuria, Urinary Incontinence - Musculoskeletal Musculoskeletal: absent: Arthralgias, Muscle Cramps, Numbness, Tingling - Neurological Neurological: absent: Abnormal Gait, Dizziness, Numbness, Radicular Pain, Restless Legs, Syncope, Tingling Past Patient History - Infectious Disease Hx of Infectious Diseases: None - Tetanus Immunizations Tetanus Immunization: Unknown - Past Medical History & Family History Past Medical History?: Yes - Past Social History Smoking Status: Former Smoker - CARDIAC Hx Cardiac Disorders: Yes Hx Hypertension: Yes - PULMONARY Hx Respiratory Disorders: No - NEUROLOGICAL Hx Neurological Disorder: No - HEENT Hx HEENT Problems: No - RENAL Hx Chronic Kidney Disease: No - ENDOCRINE/METABOLIC Hx Endocrine Disorders: No - HEMATOLOGICAL/ONCOLOGICAL Hx Blood Disorders: No - INTEGUMENTARY Hx Dermatological Problems: Yes (GENERALIZED BLISTERING RASH) - MUSCULOSKELETAL/RHEUMATOLOGICAL Hx Musculoskeletal Disorders: No - GASTROINTESTINAL Hx Gastrointestinal Disorders: No - GENITOURINARY/GYNECOLOGICAL Hx Genitourinary Disorders: No - PSYCHIATRIC Hx Psychophysiologic Disorder: No Hx Substance Use: No - SURGICAL HISTORY Other/Comment: hernia surgery and left shoulder surgery. - ANESTHESIA Hx Anesthesia Reactions: No Hx Malignant Hyperthermia: No Meds Allergies/Adverse Reactions: Allergies Allergy/AdvReac Type Severity Reaction Status Date / Time No Known Allergies Allergy Verified 08/13/18 14:24 Physical Exam - Constitutional Appears: Non-toxic, No Acute Distress - Head Exam Head Exam: ATRAUMATIC, NORMOCEPHALIC - Eye Exam Eye Exam: EOMI, Normal appearance, PERRL - ENT Exam ENT Exam: Mucous Membranes Moist - Respiratory Exam Respiratory Exam: Clear to Auscultation Bilateral, NORMAL BREATHING PATTERN. absent: Rales, Rhonchi, Wheezes - Cardiovascular Exam Cardiovascular Exam: REGULAR RHYTHM, +S1, +S2. absent: Gallop, Rubs, Systolic Murmur - GI/Abdominal Exam GI & Abdominal Exam: Normal Bowel Sounds, Soft. absent: Distended, Guarding, Organomegaly, Tenderness - Extremities Exam Extremities exam: Positive for: normal capillary refill, pedal edema, tenderness, pedal pulses present Additional comments: 1+ pedal edema b/l - Neurological Exam Neurological exam: Alert, CN II-XII Intact, Oriented x3 - Psychiatric Exam Psychiatric exam: Normal Affect, Normal Mood - Skin Skin Exam: Rash, Warm Additional comments: Diffuse excoriations and macular rash noted all over skin especially in lower extremities b/l and entirety of back, no joe pus noted on exam, erythematous on exam, tenderness to palpation Results - Vital Signs Recent Vital Signs: Last Vital Signs Temp 98.1 F 11/14/18 01:17 Pulse 89 11/14/18 01:51 Resp 18 11/14/18 01:51 BP 148/86 11/14/18 01:51 Pulse Ox 100 11/14/18 01:51 - Labs Result Diagrams: 11/14/18 00:05 11/14/18 00:05 Labs: Laboratory Results - last 24 hr 11/14/18 11/14/18 11/14/18 00:05 00:05 00:05 WBC 9.0 RBC 3.90 Hgb 9.2 L Hct 30.7 L MCV 78.7 L D MCH 23.6 L MCHC 30.0 L RDW 17.2 H Plt Count 358 MPV 8.9 PT 13.3 H INR 1.20 APTT 31.7 Sodium 140 Potassium 4.1 Chloride 105 Carbon Dioxide 29 Anion Gap 10 BUN 13 Creatinine 0.7 L Est GFR ( Amer) > 60 Est GFR (Non-Af Amer) > 60 Random Glucose 85 Calcium 8.6 Total Bilirubin 0.5 AST 24 ALT 19 Alkaline Phosphatase 79 Lactate Dehydrogenase 522 Total Creatine Kinase 45 Troponin I 0.03 D NT-Pro-B Natriuret Pep 3770 H Total Protein 7.2 Albumin 3.2 Globulin 4.0 Albumin/Globulin Ratio 0.8 L Assessment & Plan - Assessment and Plan (Free Text) Assessment: This is a 78 y o male with PMhx brain aneurysm, HTN, bullous pemphigoid dx 1 y ago, and PE, who presents to the ED with c/o worsening rash, b/l LE swelling, and dyspnea on exertion. Found on ED work-up to have elevated BNP. CXR reviewed, shows increased pulmonary vascular changes b/l. Plan: CHF exacerbation Possibly 2/2 underlying CHF, pt did not take home HTN med for 4 days BNP elevated at 3770 on admission Trop 0.03 on admission, repeat trops x2 pending, pt denies sxs of chest pain at this time EKG on admission demonstrated NSR at 88 bpm, non-specific St-T wave changes CXR findings as described above S/p Lasix x1 in ED, pt voiding at bedside without acute concerns, continue to monitor diuresis Cardio consulted (Dr. Cross), recs appreciated Will cont to monitor Cellulitis Likely 2/2 exacerbation of bullous pemphigoid Blood + urine cxs pending S/p Vanco x1 in ED ID consulted (Dr. Krishnamurthy), recs appreciated Procal ordered No leukocytosis on admission U/s duplex LE prelim read neg for DVT Pt afebrile, vitals stable, cont to monitor Anemia R/o anemia of chronic disease, iron def as etiologies H/H 9.2/30.7 Pending iron studies, retic ct, folate, B12 On rectal exam does not demonstrate any signs of active bleeding Hx HTN BP 148/86 Cont to monitor Need to verify home medication with pharmacy in am Hx bullous pemphigoid Pt denies recent hx of being treated with steroids or other immunosuppressants Pt seen, examined with, and plan discussed with Dr. Shanks, attending physician. Zachary Altman DO PGY-1, Testing Director Pager #[phone] <Peter Shanks - Last Filed: 11/14/18 05:53> Results - Vital Signs Recent Vital Signs: Last Vital Signs Temp 98 F 11/14/18 03:03 Pulse 90 11/14/18 03:03 Resp 20 11/14/18 05:04 BP 106/64 11/14/18 03:03 Pulse Ox 95 11/14/18 03:03 - Labs Result Diagrams: 11/14/18 00:05 11/14/18 00:05 Labs: Laboratory Results - last 24 hr 11/14/18 11/14/18 11/14/18 00:05 00:05 00:05 WBC 9.0 RBC 3.90 Hgb 9.2 L Hct 30.7 L MCV 78.7 L D MCH 23.6 L MCHC 30.0 L RDW 17.2 H Plt Count 358 MPV 8.9 Retic Count PT 13.3 H INR 1.20 APTT 31.7 Sodium 140 Potassium 4.1 Chloride 105 Carbon Dioxide 29 Anion Gap 10 BUN 13 Creatinine 0.7 L Est GFR ( Amer) > 60 Est GFR (Non-Af Amer) > 60 Random Glucose 85 Calcium 8.6 Total Bilirubin 0.5 AST 24 ALT 19 Alkaline Phosphatase 79 Lactate Dehydrogenase 522 Total Creatine Kinase 45 Troponin I 0.03 D NT-Pro-B Natriuret Pep 3770 H Total Protein 7.2 Albumin 3.2 Globulin 4.0 Albumin/Globulin Ratio 0.8 L 11/14/18 00:05 WBC RBC Hgb Hct MCV MCH MCHC RDW Plt Count MPV Retic Count 1.13 PT INR APTT Sodium Potassium Chloride Carbon Dioxide Anion Gap BUN Creatinine Est GFR ( Amer) Est GFR (Non-Af Amer) Random Glucose Calcium Total Bilirubin AST ALT Alkaline Phosphatase Lactate Dehydrogenase Total Creatine Kinase Troponin I NT-Pro-B Natriuret Pep Total Protein Albumin Globulin Albumin/Globulin Ratio Attending/Attestation - Attestation I have personally seen and examined this patient.: Yes I have fully participated in the care of the patient.: Yes I have reviewed all pertinent clinical information: Yes Notes (Text): 11/14/18 05:52 Patient was seen when he was in bed # 1 in the ER. Medical record was reviewed. Agree with history , physical examination, assessment and plan.
[2018-11-14] MEDS ORDERED: Albuterol-Ipratrop 3 mg / 0.5 (3 ml) UD IH PRN (02:37)
[2018-11-14 05:22] VITALS: BMI 24.4
[2018-11-14 05:29] VITALS: RESP 20
[2018-11-14] MEDS: Pantoprazole 40 mg EC Tab PO SCH (07:02)
[2018-11-14 07:31] LABS: IRON 21 ug/dL (45-180)
[2018-11-14 07:40] LABS: % IRON SATURATION 8 % (20-55); TOTAL IRON BINDING CAPACITY 271 ug/dL (261-462)
--- NOTE | 2018-11-14 10:18 | CP.PCM.CON ---
<Zander Shetty - Last Filed: 11/14/18 13:44> History of Present Illness - History of Present Illness History of Present Illness: ID Consult Note 78 year old male with past medical history of brain aneurysm, HTN, bullous pemphigoid, and PE who presents to the hospital for a 4 day history of shortness of breath and rash. Patient admits to having bullous pemphigoid for 1 year now. Patient initially followed up with network strategist for medications, but after the physician retired, patient states he stopped taking medication. Patient states his rash has become progressively worse with spread from the abdomen to throughout his entire body. He has blister formation and pruritus. He admits to itching blisters and popping of these blisters with expression of clear fluid. His shortness of breath has become progressively worse with increasing lower extremity edema over the last 4 days. Denies chest pain, nausea, vomiting, diarrhea, fever, chills, nausea, vomiting, diarrhea, dysuria, numbness, tingling. Medical hx: brain aneurysm, HTN, bullous pemphigoid dx 1 y ago, and PE Surgical Hx: hiatal hernia repair 25 y ago Allergies: NKDA Medications: Reviewed, as per MAR Family hx: Denies Social hx: former smoker, former alcohol use. denies illicit drug use Review of Systems - Review of Systems Review of Systems: 12 point ROS as per HPI, otherwise negative Past Patient History - Infectious Disease Hx of Infectious Diseases: None - Tetanus Immunizations Tetanus Immunization: Unknown - Past Medical History & Family History Past Medical History?: Yes - Past Social History Smoking Status: Former Smoker - CARDIAC Hx Cardiac Disorders: Yes Hx Hypertension: Yes - PULMONARY Hx Respiratory Disorders: No - NEUROLOGICAL Hx Neurological Disorder: No - HEENT Hx HEENT Problems: No - RENAL Hx Chronic Kidney Disease: No - ENDOCRINE/METABOLIC Hx Endocrine Disorders: No - HEMATOLOGICAL/ONCOLOGICAL Hx Blood Disorders: No - INTEGUMENTARY Hx Dermatological Problems: Yes (GENERALIZED BLISTERING RASH) - MUSCULOSKELETAL/RHEUMATOLOGICAL Hx Musculoskeletal Disorders: No - GASTROINTESTINAL Hx Gastrointestinal Disorders: No - GENITOURINARY/GYNECOLOGICAL Hx Genitourinary Disorders: No - PSYCHIATRIC Hx Psychophysiologic Disorder: No Hx Substance Use: No - SURGICAL HISTORY Other/Comment: hernia surgery and left shoulder surgery. - ANESTHESIA Hx Anesthesia Reactions: No Hx Malignant Hyperthermia: No Meds Allergies/Adverse Reactions: Allergies Allergy/AdvReac Type Severity Reaction Status Date / Time No Known Allergies Allergy Verified 08/13/18 14:24 - Medications Medications: Current Medications Albuterol/Ipratropium (Duoneb 3 Mg/0.5 Mg (3 Ml) Ud) 3 ml IH Q6H PRN PRN Reason: Shortness of Breath Ferrous Sulfate (Feosol) 324 mg PO TID JOSUE Furosemide (Lasix) 40 mg IVP DAILY [facility] Heparin Sodium (Porcine) (Heparin) 5,000 units SC Q8H JOSUE; Protocol Last Admin: 11/14/18 06:23 Dose: Not Given Pantoprazole Sodium (Protonix Ec Tab) 40 mg PO 0600 [facility] Last Admin: 11/14/18 07:02 Dose: 40 mg Prednisone (Prednisone Tab) 40 mg PO DAILY [facility] Physical Exam - Constitutional Appears: Non-toxic, No Acute Distress - Head Exam Head Exam: ATRAUMATIC, NORMAL INSPECTION, NORMOCEPHALIC - Eye Exam Eye Exam: EOMI, Normal appearance - ENT Exam ENT Exam: Mucous Membranes Moist - Respiratory Exam Respiratory Exam: Clear to Auscultation Bilateral, NORMAL BREATHING PATTERN - Cardiovascular Exam Cardiovascular Exam: RRR, +S1, +S2 - GI/Abdominal Exam GI & Abdominal Exam: Normal Bowel Sounds, Soft. absent: Tenderness - Extremities Exam Extremities exam: Positive for: normal inspection, pedal edema (trace b/l) - Neurological Exam Neurological exam: Alert, CN II-XII Intact, Oriented x3 - Psychiatric Exam Psychiatric exam: Normal Affect, Normal Mood - Skin Additional comments: Multiple erythemtaous patches with intact and broken blisters throughout entire body Results - Vital Signs Recent Vital Signs: Last Vital Signs Temp 97.9 F 11/14/18 06:00 Pulse 98 H 11/14/18 06:00 Resp 20 11/14/18 06:00 BP 135/80 11/14/18 06:00 Pulse Ox 95 11/14/18 03:03 - Labs Result Diagrams: 11/14/18 00:05 11/14/18 00:05 Labs: Laboratory Results - last 24 hr 11/14/18 11/14/18 11/14/18 00:05 00:05 00:05 WBC 9.0 RBC 3.90 Hgb 9.2 L Hct 30.7 L MCV 78.7 L D MCH 23.6 L MCHC 30.0 L RDW 17.2 H Plt Count 358 MPV 8.9 Retic Count PT 13.3 H INR 1.20 APTT 31.7 Sodium 140 Potassium 4.1 Chloride 105 Carbon Dioxide 29 Anion Gap 10 BUN 13 Creatinine 0.7 L Est GFR ( Amer) > 60 Est GFR (Non-Af Amer) > 60 Random Glucose 85 Calcium 8.6 Iron TIBC % Saturation Total Bilirubin 0.5 AST 24 ALT 19 Alkaline Phosphatase 79 Lactate Dehydrogenase 522 Total Creatine Kinase 45 Troponin I 0.03 D NT-Pro-B Natriuret Pep 3770 H Total Protein 7.2 Albumin 3.2 Globulin 4.0 Albumin/Globulin Ratio 0.8 L 11/14/18 11/14/18 11/14/18 00:05 07:00 07:00 WBC RBC Hgb Hct MCV MCH MCHC RDW Plt Count MPV Retic Count 1.13 PT INR APTT Sodium Potassium Chloride Carbon Dioxide Anion Gap BUN Creatinine Est GFR ( Amer) Est GFR (Non-Af Amer) Random Glucose Calcium Iron 21 L TIBC 271 % Saturation 8 L Total Bilirubin AST ALT Alkaline Phosphatase Lactate Dehydrogenase Total Creatine Kinase Troponin I 0.03 NT-Pro-B Natriuret Pep Total Protein Albumin Globulin Albumin/Globulin Ratio Assessment & Plan - Assessment and Plan (Free Text) Plan: Bullous pemphigoid Hx of brain aneurysm lower extremity swelling, possible venous stasis HTN history of brain aneurysm history of pulmonary embolism Hx of hiatal hernia repair Plan Patient received 1 dose of vancomycin in ED Dermatology Consult Will start Doxycycline Continue to monitor closely Sena, PGY-3 <Thor Bills - Last Filed: 11/14/18 14:09> Meds - Medications Medications: Current Medications Albuterol/Ipratropium (Duoneb 3 Mg/0.5 Mg (3 Ml) Ud) 3 ml IH Q6H PRN PRN Reason: Shortness of Breath Doxycycline Hyclate (Doryx) 100 mg PO Q12 JOSUE; Protocol Ferrous Sulfate (Feosol) 324 mg PO TID JOSUE Last Admin: 11/14/18 13:43 Dose: 324 mg Furosemide (Lasix) 40 mg IVP BID JOSUE Heparin Sodium (Porcine) (Heparin) 5,000 units SC Q8H JOSUE; Protocol Last Admin: 11/14/18 10:33 Dose: 5,000 units Pantoprazole Sodium (Protonix Ec Tab) 40 mg PO 0600 [facility] Last Admin: 11/14/18 07:02 Dose: 40 mg Prednisone (Prednisone Tab) 40 mg PO DAILY [facility] Last Admin: 11/14/18 10:30 Dose: 40 mg Results - Vital Signs Recent Vital Signs: Last Vital Signs Temp 97.4 F L 11/14/18 12:00 Pulse 88 11/14/18 12:00 Resp 20 11/14/18 12:00 BP 123/84 11/14/18 12:51 Pulse Ox 95 11/14/18 03:03 - Labs Result Diagrams: 11/14/18 00:05 11/14/18 00:05 Labs: Laboratory Results - last 24 hr 11/14/18 11/14/18 11/14/18 00:05 00:05 00:05 WBC 9.0 RBC 3.90 Hgb 9.2 L Hct 30.7 L MCV 78.7 L D MCH 23.6 L MCHC 30.0 L RDW 17.2 H Plt Count 358 MPV 8.9 Retic Count PT 13.3 H INR 1.20 APTT 31.7 Sodium 140 Potassium 4.1 Chloride 105 Carbon Dioxide 29 Anion Gap 10 BUN 13 Creatinine 0.7 L Est GFR ( Amer) > 60 Est GFR (Non-Af Amer) > 60 Random Glucose 85 Calcium 8.6 Iron TIBC % Saturation Ferritin Total Bilirubin 0.5 AST 24 ALT 19 Alkaline Phosphatase 79 Lactate Dehydrogenase 522 Total Creatine Kinase 45 Troponin I 0.03 D NT-Pro-B Natriuret Pep 3770 H Total Protein 7.2 Albumin 3.2 Globulin 4.0 Albumin/Globulin Ratio 0.8 L Vitamin B12 Folate Procalcitonin 11/14/18 11/14/18 11/14/18 00:05 00:05 00:05 WBC RBC Hgb Hct MCV MCH MCHC RDW Plt Count MPV Retic Count 1.13 PT INR APTT Sodium Potassium Chloride Carbon Dioxide Anion Gap BUN Creatinine Est GFR ( Amer) Est GFR (Non-Af Amer) Random Glucose Calcium Iron TIBC % Saturation Ferritin 25.4 Total Bilirubin AST ALT Alkaline Phosphatase Lactate Dehydrogenase Total Creatine Kinase Troponin I NT-Pro-B Natriuret Pep Total Protein Albumin Globulin Albumin/Globulin Ratio Vitamin B12 364 Folate 12.5 Procalcitonin 0.17 L 11/14/18 11/14/1819 07:00 07:00 11:15 WBC RBC Hgb Hct MCV MCH MCHC RDW Plt Count MPV Retic Count PT INR APTT Sodium Potassium Chloride Carbon Dioxide Anion Gap BUN Creatinine Est GFR ( Amer) Est GFR (Non-Af Amer) Random Glucose Calcium Iron 21 L TIBC 271 % Saturation 8 L Ferritin Total Bilirubin AST ALT Alkaline Phosphatase Lactate Dehydrogenase Total Creatine Kinase Troponin I 0.03 0.02 D NT-Pro-B Natriuret Pep Total Protein Albumin Globulin Albumin/Globulin Ratio Vitamin B12 Folate Procalcitonin Assessment & Plan - Assessment and Plan (Free Text) Plan: Infectious diseases Attending Physician Attestation Patient seen and examined, discussed with medical billing supervisor. I have reviewed the patient's history of present illness, past medical, social, personal and family histories, pertinent physical exam findings, course so far in this hospital admission, pertinent laboratory and imaging results. I agree with the above findings, assessment and plan. In addition, will start Doxycycline for patient with probable flare up of bullous pemphigoid. Also started on steroids by primary medical team.
--- NOTE | 2018-11-14 10:59 | CARD ---
APPROVED REPORT Date of service: 11/13/2018 EKG Measurement Heart [id number] <Conclusion> Sinus rhythm with premature atrial complexes Low voltage QRS Septal infarct, age undetermined Abnormal ECG
[2018-11-14 13:06] LABS: FERRITIN 25.4 ng/mL
[2018-11-14 13:37] LABS: FOLATE 12.5 ng/mL
--- NOTE | 2018-11-14 14:34 | RAD ---
Date of service: 11/13/2018 HISTORY: [email or web address] COMPARISON: 08/13/2018. FINDINGS: LUNGS: Extensive infiltrate primarily affecting left lower lobe. PLEURA: No significant pleural effusion identified, no pneumothorax apparent. CARDIOVASCULAR: Atherosclerotic calcifications identified primarily aortic arch. Cardiomegaly, pulmonary vascular congestion. Tortuous thoracic aorta. OSSEOUS STRUCTURES: No significant abnormalities. VISUALIZED UPPER ABDOMEN: Normal. OTHER FINDINGS: None. IMPRESSION: Extent of left lower lobe infiltrate a new finding compared to the prior study. Pulmonary vascular congestion also an acute/new finding.
--- NOTE | 2018-11-14 16:03 | CON ---
DATE: 11/14/2018 CARDIOLOGY CONSULTATION HISTORY: The patient is a 78-year-old male who presents with pedal edema and mild shortness of breath. PAST MEDICAL HISTORY: The patient's past medical history is notable for history of a brain aneurysm, hypertension, bullous pemphigoid with a questionable history of pulmonary embolism in the past. His last cardiac workup included an echocardiogram performed last year, which revealed good LV function with mild pulmonary hypertension. The patient is a former smoker. He stopped several years ago. No previous cardiac history is noted. He denies angina. SOCIAL HISTORY: The patient has not smoked for many years. REVIEW OF SYSTEMS: A 14-point review of systems is reviewed in detail. Other than pedal edema, he does experience occasional shortness of breath. PHYSICAL EXAMINATION: VITAL SIGNS: Blood pressure is 135/80, heart rates in the 80s. NECK: Negative JVD. LUNGS: Without rales. HEART: Reveals S1, S2. EXTREMITIES: Trace edema noted. SKIN: Findings are noted. DIAGNOSTIC DATA: EKG shows normal sinus rhythm with no acute changes. LABORATORY DATA: BUN and creatinine are unremarkable. The proBNP is greater than 3000. Troponins are negative. Hemoglobin is 9.2. IMPRESSION: 1. Mild congestive heart failure, acute systolic. 2. Pedal edema. 3. Mild pulmonary hypertension. 4. History of pedal edema. 5. Anemia. 6. Hypertension. 7. Questionable history of pulmonary embolism in the past. Given these findings, we will increase his Lasix to 40 b.i.d. We will obtain an echocardiogram to evaluate his LV function. Silvino Cross MD
--- NOTE | 2018-11-14 18:20 | CARD ---
APPROVED REPORT Date of service: 11/14/2018 EXAM: Two-dimensional and M-mode echocardiogram with Doppler and color Doppler. INDICATION Congestive Heart Failure 2D DIMENSIONS Left Atrium (2D)5.0 (1.6-4.0cm)IVSd1.5 (0.7-1.1cm) LVDd4.9 (3.9-5.9cm)PWd1.5 (0.7-1.1cm) LVDs3.5 (2.5-4.0cm)FS (%) 29.0 % LVEF (%)55.8 (>50%) M-Mode DIMENSIONS Aortic Root3.80 (2.2-3.7cm)Aortic Cusp Exc.1.70 (1.5-2.0cm) Aortic Valve AoV Peak Mphnmwad552.0cm/sAoV VTI50.9cmAO Peak GR.25mmHg LVOT Peak Elwnijci26.5cm/sLVOT VTI20.50cmAO Mean GR.15mmHg Mitral Valve MV E Ltdevnmu531.0cm/sMV A Kxqystrm09.1cm/sE/A ratio1.8 TDI Lateral E' Peak V9.16cm/sMedial E' Peak V5.85cm/sE/Lateral E'14.1 E/Medial E'22.1 Pulmonary Valve PV Peak Muobnmqj11.0cm/sPV Peak Grad.2mmHg Tricuspid Valve TR Peak Dvchkqji643td/sRAP [id number] Peak Gr.51mmHg [id number] LEFT VENTRICLE The left ventricle is normal size. There is mild to moderate concentric left ventricular hypertrophy. The left ventricular function is normal. The left ventricular ejection fraction is within the normal range. There is normal LV segmental wall motion. Transmitral Doppler flow pattern is Grade II-pseudonormal filling dynamics. RIGHT VENTRICLE The right ventricle is normal size. There is normal right ventricular wall thickness. The right ventricular systolic function is normal. ATRIA The left atrium is moderately dilated. The right atrium is mildly dilated. AORTIC VALVE The aortic valve is severely thickened. There is trace aortic regurgitation. There is trace valvular aortic stenosis. MITRAL VALVE The mitral valve is moderately thickened. Mitral regurgitation is mild. TRICUSPID VALVE There is moderate tricuspid regurgitation. There is moderate to severe pulmonary hypertension. GREAT VESSELS The aortic root is mildly enlarged. PERICARDIAL EFFUSION There is no pericardial effusion. <Conclusion> There is mild to moderate concentric left ventricular hypertrophy. The left ventricular function is normal. The left ventricular ejection fraction is within the normal range. There is normal LV segmental wall motion. Transmitral Doppler flow pattern is Grade II-pseudonormal filling dynamics. Mitral regurgitation is mild. There is moderate tricuspid regurgitation. There is moderate to severe pulmonary hypertension.
--- NOTE | 2018-11-14 20:23 | US ---
HISTORY: Leg pain and swelling. Evaluate for DVT PHYSICIAN(S): Silvino Barbour MD. TECHNIQUE: Duplex sonography and color-flow Doppler with graded compression were used to evaluate the deep venous systems of both lower extremities. FINDINGS: The visualized deep venous systems of both lower extremities are sonographically normal and compressible. Normal wave forms and augmentation are seen. There is no sonographic evidence for deep venous thrombosis in the visualized segments of both lower extremities. IMPRESSION: No sonographic evidence for deep venous thrombosis in the visualized segments of both lower extremities.
[2018-11-15] MEDS: Pantoprazole 40 mg EC Tab PO SCH (05:27)
[2018-11-15 06:56] LABS: BASO # 0.01 K/mm3 (0.0-2.0); BASO % 0.2 % (0.0-3.0); EOS # 0.3 (0.0-0.7); EOS % 5.4 % (1.5-5.0); HEMOGLOBIN 9.3 g/dL (14.0-18.0); LYMPH # 1.1 (1.2-3.4); LYMPH % 16.7 % (22.0-35.0); MEAN CELL VOLUME 78.6 fl (80.0-105.0); MEAN CORPUSCULAR HEMOGLOBIN 23.1 pg (25.0-35.0); MEAN CORPUSCULAR HGB CONC 29.4 g/dl (31.0-37.0); MEAN PLATELET VOLUME 9.3 fl (7.0-11.0); MONO # 0.4 (0.1-0.6); MONO % 5.7 % (1.0-6.0); RBC 4.02 10^6/uL (3.5-6.1); RED CELL DISTRIBUTION WIDTH 16.8 % (11.5-14.5); WHITE BLOOD COUNT 6.4 10^3/uL (4.5-11.0)
[2018-11-15 07:00] LABS: ALB/GLOB RATIO 0.8 (1.1-1.8); ALBUMIN 3.4 g/dL (3.0-4.8); ALT/SGPT 22 U/L (7-56); AST/SGOT 23 U/L (17-59); BLOOD UREA NITROGEN 18 mg/dL (7-21); CALCIUM 8.6 mg/dL (8.4-10.5); GFR NON-AFRICAN AMERICAN > 60
--- NOTE | 2018-11-15 10:58 | CP.PCM.PN ---
<Zander Shetty - Last Filed: 11/15/18 13:24> Subjective - Date & Time of Evaluation Date of Evaluation: 11/15/18 Time of Evaluation: 07:30 - Subjective Subjective: ID Progress Note Patient seen and examined. No acute events overnight. No fevers. No new complaints. Objective - Vital Signs/Intake and Output Vital Signs (last 24 hours): Temp Pulse Resp BP Pulse Ox 98 F 90 20 140/90 94 L 11/15/18 05:53 11/15/18 05:53 11/15/18 05:53 11/15/18 10:11 11/15/18 05:53 Intake and Output: 11/15/18 11/15/18 06:59 18:59 Intake Total 2560 Output Total 4250 Balance -1690 - Medications Medications: Current Medications Albuterol/Ipratropium (Duoneb 3 Mg/0.5 Mg (3 Ml) Ud) 3 ml IH Q6H PRN PRN Reason: Shortness of Breath Donepezil HCl (Aricept) 5 mg PO DAILY [facility] Last Admin: 11/15/18 10:10 Dose: 5 mg Doxycycline Hyclate (Doryx) 100 mg PO Q12 [facility]; Protocol Last Admin: 11/15/18 10:10 Dose: 100 mg Ferrous Sulfate (Feosol) 324 mg PO TID [facility] Last Admin: 11/15/18 10:11 Dose: 324 mg Furosemide (Lasix) 40 mg IVP BID [facility] Last Admin: 11/15/18 10:11 Dose: 40 mg Heparin Sodium (Porcine) (Heparin) 5,000 units SC Q8H [facility]; Protocol Last Admin: 11/15/18 10:11 Dose: 5,000 units Pantoprazole Sodium (Protonix Ec Tab) 40 mg PO 0600 [facility] Last Admin: 11/15/18 05:27 Dose: 40 mg Prednisone (Prednisone Tab) 40 mg PO DAILY [facility] Last Admin: 11/15/18 10:11 Dose: 40 mg - Labs Labs: 11/15/18 06:00 11/15/18 06:00 PT 13.3 SECONDS (9.4-12.5) H 11/14/18 00:05 INR 1.20 11/14/18 00:05 APTT 31.7 Seconds (26.9-38.3) 11/14/18 00:05 - Constitutional Appears: Non-toxic, No Acute Distress - Head Exam Head Exam: ATRAUMATIC, NORMAL INSPECTION, NORMOCEPHALIC - ENT Exam ENT Exam: Mucous Membranes Moist - Respiratory Exam Respiratory Exam: Clear to Ausculation Bilateral, NORMAL BREATHING PATTERN - Cardiovascular Exam Cardiovascular Exam: RRR, +S1, +S2 - GI/Abdominal Exam GI & Abdominal Exam: Soft, Normal Bowel Sounds. absent: Tenderness - Extremities Exam Extremities Exam: Normal Inspection. absent: Pedal Edema - Neurological Exam Neurological Exam: Alert, Awake, Oriented x3 - Psychiatric Exam Psychiatric exam: Normal Affect, Normal Mood - Skin Additional comments: Diffuse bullae and scabbed bullae throughout entire body. Mild erythema present on abdomen Assessment and Plan - Assessment and Plan (Free Text) Plan: Bullous pemphigoid flare Hx of brain aneurysm lower extremity swelling, possible venous stasis HTN history of brain aneurysm history of pulmonary embolism Hx of hiatal hernia repair Plan Continue Doxycycline for 5 days total Continue steroids Follow up with Dermatology Continue to monitor closely Sena PGY-3 <Thor Bills - Last Filed: 11/15/18 16:39> Objective - Vital Signs/Intake and Output Vital Signs (last 24 hours): Temp Pulse Resp BP Pulse Ox 97.5 F L 74 20 140/100 H 94 L 11/15/18 12:00 11/15/18 12:00 11/15/18 12:00 11/15/18 12:00 11/15/18 05:53 Intake and Output: 11/15/18 11/15/18 06:59 18:59 Intake Total 2560 Output Total 4250 Balance -1690 - Medications Medications: Current Medications Albuterol/Ipratropium (Duoneb 3 Mg/0.5 Mg (3 Ml) Ud) 3 ml IH Q6H PRN PRN Reason: Shortness of Breath Amlodipine Besylate (Norvasc) 5 mg PO DAILY [facility] Carvedilol (Coreg) 3.125 mg PO BID [facility] Donepezil HCl (Aricept) 5 mg PO DAILY [facility] Last Admin: 11/15/18 10:10 Dose: 5 mg Doxycycline Hyclate (Doryx) 100 mg PO Q12 [facility]; Protocol Last Admin: 11/15/18 10:10 Dose: 100 mg Ferrous Sulfate (Feosol) 324 mg PO TID [facility] Last Admin: 11/15/18 13:14 Dose: 324 mg Furosemide (Lasix) 40 mg PO DAILY [facility] Heparin Sodium (Porcine) (Heparin) 5,000 units SC Q8H [facility]; Protocol Last Admin: 11/15/18 10:11 Dose: 5,000 units Pantoprazole Sodium (Protonix Ec Tab) 40 mg PO 0600 [facility] Last Admin: 11/15/18 05:27 Dose: 40 mg Prednisone (Prednisone Tab) 40 mg PO DAILY [facility] Last Admin: 11/15/18 10:11 Dose: 40 mg - Labs Labs: 11/15/18 06:00 11/15/18 06:00 PT 13.3 SECONDS (9.4-12.5) H 11/14/18 00:05 INR 1.20 11/14/18 00:05 APTT 31.7 Seconds (26.9-38.3) 11/14/18 00:05 Assessment and Plan - Assessment and Plan (Free Text) Plan: Infectious diseases Attending Physician Attestation Patient seen and examined, discussed with medical assistant secretary. I have reviewed the patient's history of present illness, past medical, social, personal and family histories, pertinent physical exam findings, course so far in this hospital admission, pertinent laboratory and imaging results. I agree with the above findings, assessment and plan. In addition, continue Doxycycline for flare of bullous pemphigoid. Should see a Software Quality Automation Engineer for treatment of the skin condition.
--- NOTE | 2018-11-15 14:01 | PN ---
DATE: 11/15/2018 SUBJECTIVE: Patient's edema is much improved. The patient is ambulating, but appears to be confused. PHYSICAL EXAMINATION: VITAL SIGNS: Stable, heart rate is stable. NECK: Negative JVD. LUNGS: Without rales. HEART: S1, S2. EXTREMITIES: Without edema. LABORATORY DATA: Laboratories were reviewed. Echocardiogram reveals a good LV function with [id number] pulmonary hypertension. IMPRESSION: 1. Tmodryxt-il-mihvsu pulmonary hypertension. 2. Pedal edema secondary to [id number] pulmonary hypertension. 3. Emphysema. 4. Confusion. PLAN: Given these findings, we will change the IV Lasix to Lasix p.o. once a day. We will DC telemetry today. No further work cardiac workup is necessary. Silvino Cross MD
--- NOTE | 2018-11-15 14:40 | CP.PCM.PN ---
<Yao Contreras - Last Filed: 11/15/18 16:08> Subjective - Date & Time of Evaluation Date of Evaluation: 11/15/18 Time of Evaluation: 07:00 - Subjective Subjective: Yao Contreras DO, PGY-1 Hospitalist Progress Note for Dr. Coello Patient was seen and examined at bedside this AM. He appeared more confused than on prior exams. He is alert to person and correctly identified the president but is not oriented to place, time, or situation. Per his daughter, he called her about 4 times last night and sounded confused at that time. Objective - Vital Signs/Intake and Output Vital Signs (last 24 hours): Temp Pulse Resp BP Pulse Ox 97.5 F L 74 20 140/100 H 94 L 11/15/18 12:00 11/15/18 12:00 11/15/18 12:00 11/15/18 12:00 11/15/18 05:53 Intake and Output: 11/15/18 11/15/18 06:59 18:59 Intake Total 2560 Output Total 4250 Balance -1690 - Medications Medications: Current Medications Albuterol/Ipratropium (Duoneb 3 Mg/0.5 Mg (3 Ml) Ud) 3 ml IH Q6H PRN PRN Reason: Shortness of Breath Donepezil HCl (Aricept) 5 mg PO DAILY [facility] Last Admin: 11/15/18 10:10 Dose: 5 mg Doxycycline Hyclate (Doryx) 100 mg PO Q12 [facility]; Protocol Last Admin: 11/15/18 10:10 Dose: 100 mg Ferrous Sulfate (Feosol) 324 mg PO TID [facility] Last Admin: 11/15/18 13:14 Dose: 324 mg Furosemide (Lasix) 40 mg PO DAILY [facility] Heparin Sodium (Porcine) (Heparin) 5,000 units SC Q8H [facility]; Protocol Last Admin: 11/15/18 10:11 Dose: 5,000 units Pantoprazole Sodium (Protonix Ec Tab) 40 mg PO 0600 [facility] Last Admin: 11/15/18 05:27 Dose: 40 mg Prednisone (Prednisone Tab) 40 mg PO DAILY [facility] Last Admin: 11/15/18 10:11 Dose: 40 mg - Labs Labs: 11/15/18 06:00 11/15/18 06:00 PT 13.3 SECONDS (9.4-12.5) H 11/14/18 00:05 INR 1.20 11/14/18 00:05 APTT 31.7 Seconds (26.9-38.3) 11/14/18 00:05 - Constitutional Appears: Non-toxic, No Acute Distress - Head Exam Head Exam: ATRAUMATIC, NORMOCEPHALIC - Eye Exam Eye Exam: EOMI, Normal appearance, PERRL - ENT Exam ENT Exam: Mucous Membranes Dry - Neck Exam Neck Exam: Full ROM, Normal Inspection - Respiratory Exam Respiratory Exam: Clear to Ausculation Bilateral, NORMAL BREATHING PATTERN. absent: Rales, Rhonchi, Wheezes - Cardiovascular Exam Cardiovascular Exam: REGULAR RHYTHM, RRR, +S1, +S2. absent: Gallop, Rubs, Murmur - GI/Abdominal Exam GI & Abdominal Exam: Soft, Normal Bowel Sounds. absent: Tenderness - Extremities Exam Extremities Exam: Normal Inspection. absent: Pedal Edema - Back Exam Back Exam: NORMAL INSPECTION - Neurological Exam Neurological Exam: Alert, Awake - Psychiatric Exam Psychiatric exam: Anxious - Skin Additional comments: Multiple bullae present on abdomen and back c/w bullous pemphigoid, diffuse erythematous patch c/w underlying cellulitis present on abdomen but improved from prior exams Assessment and Plan - Assessment and Plan (Free Text) Assessment: 78 yo M with PMH of brain aneurysm, HTN, bullous pemphigoid, and questionable history of PE presented to ED complaining of worsening rash, pruritis, LE swelling, and SOB. Found to have elevated BNP and vascular congestion on CXR. Plan: Bullous Pemphigoid Flare with Cellulitis Per ID, continue doxycycline 100 mg BID for 5 days Has received 2 doses thus far Wound cx positive for staph aureus Continue prednisone 40 mg daily Will require taper over the course of a few months Will also need referral for obstetrician and gynaecologist outpatient prior to discharge Per daughter, he has been admitted for similar flare-ups a number of times in the past She requests social work consult for possible home health for assistance in applying needed ointments and taking medications Altered Mental Status May be 2/2 delerium vs dementia Per daughter, he is not at baseline at this time She is concerned as he has been in hospital for similar episodes and has not been able to care for himself at home alone CT head showed chronic vascular changes, no acute changes supporting dementia Continue to monitor overnight with frequent re-orientation, lighting, etc. Consider neurology consult if does not improve LE Swelling and SOB Likely 2/2 CHF exacerbation and/or pulmonary HTN TTE showed mild to moderate TR with moderate-severe pulmonary HTN and EF of 55% Per cardiology, continue on lasix 40 mg PO daily on discharge Continue daily weights, strict I & O HTN Has been hypertensive since admission Restart home BP meds Microcytic anemia Likely 2/2 iron deficiency anemia Iron studies c/w iron deficiency with low iron but normal TIBC Continue feosol 325 mg daily DVT/GI PPX: SC heparin, protonix Full Code HHD D/c telemetry Patient seen, examined, and plan discussed with my attending Dr. Mode Contreras, D.O. IM Resident PGY-1 Pager: [phone] <Myke Coello - Last Filed: 11/15/18 16:30> Objective - Vital Signs/Intake and Output Vital Signs (last 24 hours): Temp Pulse Resp BP Pulse Ox 97.5 F L 74 20 140/100 H 94 L 11/15/18 12:00 11/15/18 12:00 11/15/18 12:00 11/15/18 12:00 11/15/18 05:53 Intake and Output: 11/15/18 11/15/18 06:59 18:59 Intake Total 2560 Output Total 4250 Balance -1690 - Medications Medications: Current Medications Albuterol/Ipratropium (Duoneb 3 Mg/0.5 Mg (3 Ml) Ud) 3 ml IH Q6H PRN PRN Reason: Shortness of Breath Amlodipine Besylate (Norvasc) 5 mg PO DAILY [facility] Carvedilol (Coreg) 4.5 mg PO BID [facility] Donepezil HCl (Aricept) 5 mg PO DAILY [facility] Last Admin: 11/15/18 10:10 Dose: 5 mg Doxycycline Hyclate (Doryx) 100 mg PO Q12 [facility]; Protocol Last Admin: 11/15/18 10:10 Dose: 100 mg Ferrous Sulfate (Feosol) 324 mg PO TID [facility] Last Admin: 11/15/18 13:14 Dose: 324 mg Furosemide (Lasix) 40 mg PO DAILY [facility] Heparin Sodium (Porcine) (Heparin) 5,000 units SC Q8H [facility]; Protocol Last Admin: 11/15/18 10:11 Dose: 5,000 units Pantoprazole Sodium (Protonix Ec Tab) 40 mg PO 0600 [facility] Last Admin: 11/15/18 05:27 Dose: 40 mg Prednisone (Prednisone Tab) 40 mg PO DAILY [facility] Last Admin: 11/15/18 10:11 Dose: 40 mg - Labs Labs: 11/15/18 06:00 11/15/18 06:00 PT 13.3 SECONDS (9.4-12.5) H 11/14/18 00:05 INR 1.20 11/14/18 00:05 APTT 31.7 Seconds (26.9-38.3) 11/14/18 00:05 Attending/Attestation - Attestation I have personally seen and examined this patient.: Yes I have fully participated in the care of the patient.: Yes I have reviewed all pertinent clinical information, including history, physical exam and plan: Yes Notes (Text): 11/15/18 16:21 78 year old male with past medical history of hyperntension and bullous pemphigoid who presented with shortness of breath, LE edema/rash and abdominal rash. He was started on antibiotics and steroids for bullous pemphigoid flare up with superimposed cellulitis. Wound culture is growing staph aureus. ID is following. Recommended outpatient dermatology follow up. He was also found to have congestion on CXR with elevated pbnp and started on lasix for presumed CHF. His dyspnea has improved and cardiology switched lasix to po. Echocardiogram was reviewed which showed preserved EF with moderate- severe pulmonary hypertension. Today he is noted to have confusion; consider delirium vs worsening of dementia. CT head and UA is ordered. Will monitor for now; if worsening consider neurolo gy or psychiatry evaluation. Will discuss with rehabilitation case coordinator / geriatric social worker as patient lives alone may need home services upon discharge. Will replete and repeat potassium. Myke Coello MD Hospitalist.
--- NOTE | 2018-11-15 16:06 | CT ---
Date of service: 11/15/2018 PROCEDURE: CT HEAD WITHOUT CONTRAST. HISTORY: confusion, altered mental status COMPARISON: 05/19/2016 TECHNIQUE: Axial computed tomography images were obtained through the head/brain without intravenous contrast. Radiation dose: Total exam DLP = 954.61 mGy-cm. This CT exam was performed using one or more of the following dose reduction techniques: Automated exposure control, adjustment of the mA and/or kV according to patient size, and/or use of iterative reconstruction technique. FINDINGS: HEMORRHAGE: No intracranial hemorrhage. BRAIN: No mass effect or edema. Suggestion of worsening of chronic periventricular white matter ischemic disease. No acute hemorrhage. VENTRICLES: Unremarkable. No hydrocephalus. CALVARIUM: Unremarkable. PARANASAL SINUSES: Unremarkable as visualized. No significant inflammatory changes. MASTOID AIR CELLS: Unremarkable as visualized. No inflammatory changes. OTHER FINDINGS: None. IMPRESSION: Suggestion of worsening of chronic periventricular white matter ischemic disease. No acute hemorrhage.
[2018-11-15 16:55] LABS: URINE BILIRUBIN NEGATIVE (NEGATIVE); URINE BLOOD NEGATIVE (NEGATIVE); URINE GLUCOSE (UA) NEGATIVE (NEGATIVE); URINE LEUKOCYTE ESTERASE NEGATIVE Leu/uL (NEGATIVE); URINE PROTEIN NEGATIVE mg/dL (<30 mg/dL); URINE UROBILINOGEN 0.2 E.U./dL (<1 E.U./dL)
[2018-11-15 17:00] LABS: URINE APPEARANCE CLEAR (CLEAR); URINE COLOR YELLOW (YELLOW)
--- NOTE | 2018-11-15 17:04 | CP.PCM.APN ---
Subjective - Date & Time of Evaluation Date of Evaluation: 11/15/18 Time of Evaluation: 13:00 - Subjective Subjective: Pt. seen and examined at bedside. Noted to be sitting up, denied dyspnea, denied chest pain, expresses concern over rash to legs. B/L Leg edema noted. Review of Systems - Review of Systems Systems not reviewed;Unavailable: Dementia - EENT Eyes: absent: As Per HPI, Blind Spots, Blurred Vision, Change in Vision, Decreased Night Vision, Diplopia, Discharge, Dry Eye, Exophthalmos, Floaters, Irritation, Itchy Eyes, Loss of Peripheral Vision, Pain, Photophobia, Requires Corrective Lenses, Sees Flashes, Spots in Vision, Tunnel Vision, Other Visual Disturbances, Loss of Vision, Other Ears: absent: As Per HPI, Decreased Hearing, Ear Discharge, Ear Pain, Tinnitus, Abnormal Hearing, Disequilibrium, Dizziness, Other Nose/Mouth/Throat: absent: As Per HPI, Epistaxis, Nasal Congestion, Nasal Discharge, Nasal Obstruction, Nasal Trauma, Nose Pain, Post Nasal Drip, Sinus Pain, Sinus Pressure, Bleeding Gums, Change in Voice, Dental Pain, Dry Mouth, Dysphagia, Halitosis, Hoarsness, Lip Swelling, Mouth Lesions, Mouth Pain, Odynophagia, Sore Throat, Throat Swelling, Tongue Swelling, Facial Pain, Neck Pain, Neck Mass, Other - Cardiovascular Cardiovascular: Leg Edema, Pedal Edema - Respiratory Respiratory: Dyspnea on Exertion - Gastrointestinal Gastrointestinal: absent: As Per HPI, Abdominal Pain, Belching, Bloating, Change in Bowel Habits, Change in Stool Character, Coffee Ground Emesis, Constipation, Cramping, Diarrhea, Dyspepsia, Dysphagia, Early Satiety, Excessive Flatus, Fecal Incontinence, Heartburn, Hematemesis, Hematochezia, Loose Stools, Melena, Nausea, Odynophagia, Temesmus, Vomiting, Other - Genitourinary Genitourinary: absent: As Per HPI, Change in Urinary Stream, Difficulty Urinating, Dysuria, Flank Pain, Hematuria, Pyuria, Nocturia, Urinary Incontinence, Urinary Frequency, Urinary Hesitance, Urinary Urgency, Voiding Freq/Small Amts, Freq UTI, Hx Renal/Bladder Calculi, Hx /Renal Surgery, Bladder Distension, Other - Integumentary Integumentary: Other - Neurological Neurological: Confusion, Memory Loss Objective - Vital Signs/Intake and Output Vital Signs (last 24 hours): Temp Pulse Resp BP Pulse Ox 97.5 F L 74 20 140/100 H 95 11/15/18 12:00 11/15/18 12:00 11/15/18 12:00 11/15/18 12:00 11/15/18 16:45 Intake and Output: 11/15/18 11/15/18 06:59 18:59 Intake Total 2560 Output Total 4250 Balance -1690 - Medications Medications: Current Medications Albuterol/Ipratropium (Duoneb 3 Mg/0.5 Mg (3 Ml) Ud) 3 ml IH Q6H PRN PRN Reason: Shortness of Breath Amlodipine Besylate (Norvasc) 5 mg PO DAILY [facility] Carvedilol (Coreg) 3.125 mg PO BID [facility] Donepezil HCl (Aricept) 5 mg PO DAILY [facility] Last Admin: 11/15/18 10:10 Dose: 5 mg Doxycycline Hyclate (Doryx) 100 mg PO Q12 [facility]; Protocol Last Admin: 11/15/18 10:10 Dose: 100 mg Ferrous Sulfate (Feosol) 324 mg PO TID [facility] Last Admin: 11/15/18 13:14 Dose: 324 mg Furosemide (Lasix) 40 mg PO DAILY [facility] Heparin Sodium (Porcine) (Heparin) 5,000 units SC Q8H [facility]; Protocol Last Admin: 11/15/18 10:11 Dose: 5,000 units Pantoprazole Sodium (Protonix Ec Tab) 40 mg PO 0600 [facility] Last Admin: 11/15/18 05:27 Dose: 40 mg Prednisone (Prednisone Tab) 40 mg PO DAILY [facility] Last Admin: 11/15/18 10:11 Dose: 40 mg - Labs Labs: 11/15/18 06:00 11/15/18 06:00 PT 13.3 SECONDS (9.4-12.5) H 11/14/18 00:05 INR 1.20 11/14/18 00:05 APTT 31.7 Seconds (26.9-38.3) 11/14/18 00:05 Assessment and Plan - Assessment and Plan (Free Text) Assessment: ITS Impressions Chest X-Ray 11/13/18 22:45 IMPRESSION: Extent of left lower lobe infiltrate a new finding compared to the prior study. Pulmonary vascular congestion also an acute/new finding. Extremity Ultrasound 11/13/18 22:52 IMPRESSION: No sonographic evidence for deep venous thrombosis in the visualized segments of both lower extremities. Head CT 11/15/18 14:35 IMPRESSION: Suggestion of worsening of chronic periventricular white matter ischemic disease. No acute hemorrhage. Assessment: 78 y o male with PMhx brain aneurysm, CHF, HTN, bullous pemphigoid dx 1 y ago, and PE, who presents to the ED with c/o worsening rash, b/l LE swelling, and dyspnea on exertion. Plan: 1. CHF Evaluated by Card, Lasix IV changed to PO Lasix, Telemetry dcd, edema thought to be not r/t CHF. 2. Bullous Pemphigoid _ Doxycycline PO as per I.D. 3. Confusion _ Most likely secondary to hospitalization, change r/t underlying dementia. Head CT resulted no acute changes. concern for taking medications at home, VNS/Home services discussed with daughters. May need to arrange help at home . Will continue to monitor closely and discuss with PMD, consultants.
[2018-11-16] MEDS: Pantoprazole 40 mg EC Tab PO SCH (05:24)
[2018-11-16 06:29] VITALS: O2SAT 93
[2018-11-16 06:44] LABS: BASO # 0.01 K/mm3 (0.0-2.0); BASO % 0.1 % (0.0-3.0); EOS # 0.2 (0.0-0.7); EOS % 2.2 % (1.5-5.0); HEMOGLOBIN 9.2 g/dL (14.0-18.0); LYMPH # 1.4 (1.2-3.4); LYMPH % 20.2 % (22.0-35.0); MEAN CELL VOLUME 79.5 fl (80.0-105.0); MEAN CORPUSCULAR HEMOGLOBIN 23.2 pg (25.0-35.0); MEAN CORPUSCULAR HGB CONC 29.2 g/dl (31.0-37.0); MEAN PLATELET VOLUME 9.3 fl (7.0-11.0); MONO # 0.4 (0.1-0.6); MONO % 6.3 % (1.0-6.0); RBC 3.96 10^6/uL (3.5-6.1); RED CELL DISTRIBUTION WIDTH 16.7 % (11.5-14.5); WHITE BLOOD COUNT 6.7 10^3/uL (4.5-11.0)
[2018-11-16 06:52] LABS: LDL CHOLESTEROL 55 mg/dL (0-129)
[2018-11-16 07:19] LABS: ALB/GLOB RATIO 0.8 (1.1-1.8); ALBUMIN 3.3 g/dL (3.0-4.8); ALT/SGPT 22 U/L (7-56); AST/SGOT 21 U/L (17-59); BLOOD UREA NITROGEN 22 mg/dL (7-21); CALCIUM 8.8 mg/dL (8.4-10.5); GFR NON-AFRICAN AMERICAN > 60; HDL CHOLESTEROL 38 mg/dL (29-60)
[2018-11-16] MEDS ORDERED: Potassium Chloride 20 mEq ER Tab PO STA (11:09)
[2018-11-16 12:30] VITALS: BP 143/97; PULSE 76; TEMP 98.1
--- NOTE | 2018-11-16 12:31 | CP.PCM.PN ---
<Zander Shetty - Last Filed: 11/16/18 12:29> Subjective - Date & Time of Evaluation Date of Evaluation: 11/16/18 Time of Evaluation: 07:45 - Subjective Subjective: ID Progress Note Patient seen and examined. No acute events overnight. Admits to improvement in rash. No fevers. Objective - Vital Signs/Intake and Output Vital Signs (last 24 hours): Temp Pulse Resp BP Pulse Ox 98.8 F 83 20 128/89 93 L 11/16/18 06:00 11/16/18 06:00 11/16/18 06:00 11/16/18 09:57 11/16/18 06:00 Intake and Output: 11/16/18 11/16/18 06:59 18:59 Intake Total 2040 Output Total 1850 Balance 190 - Medications Medications: Current Medications Albuterol/Ipratropium (Duoneb 3 Mg/0.5 Mg (3 Ml) Ud) 3 ml IH Q6H PRN PRN Reason: Shortness of Breath Amlodipine Besylate (Norvasc) 5 mg PO DAILY [facility] Last Admin: 11/16/18 09:57 Dose: 5 mg Carvedilol (Coreg) 3.125 mg PO BID [facility] Last Admin: 11/16/18 09:58 Dose: 3.125 mg Donepezil HCl (Aricept) 5 mg PO DAILY [facility] Last Admin: 11/16/18 09:58 Dose: 5 mg Doxycycline Hyclate (Doryx) 100 mg PO Q12 [facility]; Protocol Last Admin: 11/16/18 09:57 Dose: 100 mg Ferrous Sulfate (Feosol) 324 mg PO TID [facility] Last Admin: 11/16/18 09:58 Dose: 324 mg Furosemide (Lasix) 40 mg PO DAILY [facility] Last Admin: 11/16/18 09:57 Dose: 40 mg Heparin Sodium (Porcine) (Heparin) 5,000 units SC Q8H [facility]; Protocol Last Admin: 11/16/18 05:24 Dose: 5,000 units Pantoprazole Sodium (Protonix Ec Tab) 40 mg PO 0600 [facility] Last Admin: 11/16/18 05:24 Dose: 40 mg Prednisone (Prednisone Tab) 40 mg PO DAILY [facility] Last Admin: 11/16/18 09:57 Dose: 40 mg - Labs Labs: 11/16/18 06:00 11/16/18 06:00 PT 13.3 SECONDS (9.4-12.5) H 11/14/18 00:05 INR 1.20 11/14/18 00:05 APTT 31.7 Seconds (26.9-38.3) 11/14/18 00:05 - Constitutional Appears: Non-toxic, No Acute Distress - Head Exam Head Exam: ATRAUMATIC, NORMAL INSPECTION, NORMOCEPHALIC - Respiratory Exam Respiratory Exam: Decreased Breath Sounds, NORMAL BREATHING PATTERN - Cardiovascular Exam Cardiovascular Exam: RRR, +S1, +S2 - GI/Abdominal Exam GI & Abdominal Exam: Soft, Normal Bowel Sounds. absent: Tenderness - Extremities Exam Extremities Exam: Normal Inspection. absent: Pedal Edema - Neurological Exam Neurological Exam: Alert, Awake, Oriented x3 - Psychiatric Exam Psychiatric exam: Normal Affect, Normal Mood - Skin Skin Exam: Warm Additional comments: Improving full body rash, with decrease in bullae Assessment and Plan - Assessment and Plan (Free Text) Plan: Bullous pemphigoid flare Hx of brain aneurysm lower extremity swelling, possible venous stasis HTN history of brain aneurysm history of pulmonary embolism Hx of hiatal hernia repair Plan Wound culture positive for MSSA resistant to Tetracyclines Start Keflex x 5 days Continue steroids Follow up with Dermatology Continue to monitor closely Sena PGY-3 <Thor Bills - Last Filed: 11/16/18 15:11> Objective - Vital Signs/Intake and Output Vital Signs (last 24 hours): Temp Pulse Resp BP Pulse Ox 98.1 F 76 20 143/97 H 93 L 11/16/18 12:00 11/16/18 12:00 11/16/18 12:00 11/16/18 12:00 11/16/18 06:00 Intake and Output: 11/16/18 11/16/18 06:59 18:59 Intake Total 2040 Output Total 1850 Balance 190 - Medications Medications: Current Medications Albuterol/Ipratropium (Duoneb 3 Mg/0.5 Mg (3 Ml) Ud) 3 ml IH Q6H PRN PRN Reason: Shortness of Breath Amlodipine Besylate (Norvasc) 5 mg PO DAILY [facility] Last Admin: 11/16/18 09:57 Dose: 5 mg Carvedilol (Coreg) 3.125 mg PO BID [facility] Last Admin: 11/16/18 09:58 Dose: 3.125 mg Donepezil HCl (Aricept) 5 mg PO DAILY [facility] Last Admin: 11/16/18 09:58 Dose: 5 mg Doxycycline Hyclate (Doryx) 100 mg PO Q12 [facility]; Protocol Last Admin: 11/16/18 09:57 Dose: 100 mg Ferrous Sulfate (Feosol) 324 mg PO TID [facility] Last Admin: 11/16/18 13:31 Dose: 324 mg Furosemide (Lasix) 40 mg PO DAILY [facility] Last Admin: 11/16/18 09:57 Dose: 40 mg Heparin Sodium (Porcine) (Heparin) 5,000 units SC Q8H [facility]; Protocol Last Admin: 11/16/18 13:32 Dose: 5,000 units Pantoprazole Sodium (Protonix Ec Tab) 40 mg PO 0600 [facility] Last Admin: 11/16/18 05:24 Dose: 40 mg Prednisone (Prednisone Tab) 40 mg PO DAILY [facility] Last Admin: 11/16/18 09:57 Dose: 40 mg - Labs Labs: 11/16/18 06:00 11/16/18 06:00 PT 13.3 SECONDS (9.4-12.5) H 11/14/18 00:05 INR 1.20 11/14/18 00:05 APTT 31.7 Seconds (26.9-38.3) 11/14/18 00:05 Assessment and Plan - Assessment and Plan (Free Text) Plan: Infectious diseases Attending Physician Attestation Patient seen and examined, discussed with emergency medicine medical director. I have reviewed the patient's history of present illness, past medical, social, personal and family histories, pertinent physical exam findings, course so far in this hospital adm ission, pertinent laboratory and imaging results. I agree with the above findings, assessment and plan.
--- NOTE | 2018-11-16 16:38 | CP.PCM.DIS ---
<Yao Contreras - Last Filed: 11/16/18 16:56> Provider - Provider Date of Admission: 11/15/18 15:58 Attending physician: Myke Coello MD Primary care physician: Markie Padron MD Consults: 11/14/18 02:34 Infectious Disease Consult Routine Comment: Consulting Provider: Hernandez Krishnamurthy Consulting Physician: Hernandez Krishnamurthy Reason for Consult: Cellulitis, hx bullous pemphigoid 11/14/18 02:35 Cardiology Consult Routine Comment: Consulting Provider: Silvino Cross Consulting Physician: Silvino Cross Reason for Consult: elevated BNP, dyspnea on exertion 11/14/18 05:06 Social Work Referral Routine Comment: protocol Physician Instructions: Reason For Exam: needs assistance 11/14/18 05:22 Transition In Care/Readmission Reduction Routine Comment: Physician Instructions: Reason For Exam: protocol 11/15/18 15:23 Senior Salesforce Developer [Case Management Referral] Routine Comment: Physician Instructions: Reason For Exam: needs home health aide, dementia Reason for Referral: Senior Salesforce Developer Eval Time Spent in preparation of Discharge (in minutes): 45 Diagnosis - Discharge Diagnosis (1) Pulmonary hypertension Status: Chronic (2) Bullous pemphigoid Status: Chronic Priority: High (3) Abnormal CXR Status: Resolved Hospital Course - Lab Results Lab Results: Micro Results 11/13/18 23:30 Skin - Lesion Gram Stain - Final 11/13/18 23:30 Skin - Lesion Wound Culture - Final Staphylococcus Aureus 11/14/18 00:15 Blood Blood Culture - Preliminary NO GROWTH AFTER 48 HOURS 11/14/18 00:00 Blood Blood Culture - Preliminary NO GROWTH AFTER 48 HOURS Most Recent Lab Values WBC 6.7 10^3/uL (4.5-11.0) 11/16/18 06:00 RBC 3.96 10^6/uL (3.5-6.1) 11/16/18 06:00 Hgb 9.2 g/dL (14.0-18.0) L 11/16/18 06:00 Hct 31.5 % (42.0-52.0) L 11/16/18 06:00 MCV 79.5 fl (80.0-105.0) L 11/16/18 06:00 MCH 23.2 pg (25.0-35.0) L 11/16/18 06:00 MCHC 29.2 g/dl (31.0-37.0) L 11/16/18 06:00 RDW 16.7 % (11.5-14.5) H 11/16/18 06:00 Plt Count 386 10^3/uL (120.0-450.0) 11/16/18 06:00 MPV 9.3 fl (7.0-11.0) 11/16/18 06:00 Neut % (Auto) 71.2 % (50.0-68.0) H 11/16/18 06:00 Lymph % (Auto) 20.2 % (22.0-35.0) L 11/16/18 06:00 Weakley % (Auto) 6.3 % (1.0-6.0) H 11/16/18 06:00 Eos % (Auto) 2.2 % (1.5-5.0) 11/16/18 06:00 Baso % (Auto) 0.1 % (0.0-3.0) 11/16/18 06:00 Lymph # (Auto) 1.4 (1.2-3.4) 11/16/18 06:00 Weakley # (Auto) 0.4 (0.1-0.6) 11/16/18 06:00 Eos # (Auto) 0.2 (0.0-0.7) 11/16/18 06:00 Baso # (Auto) 0.01 K/mm3 (0.0-2.0) 11/16/18 06:00 Absolute Neuts (auto) 4.76 (1.4-6.5) 11/16/18 06:00 Retic Count 1.13 % (0.5-1.5) 11/14/18 00:05 PT 13.3 SECONDS (9.4-12.5) H 11/14/18 00:05 INR 1.20 11/14/18 00:05 APTT 31.7 Seconds (26.9-38.3) 11/14/18 00:05 Sodium 141 mmol/L (132-148) 11/16/18 06:00 Potassium 3.5 mmol/L (3.6-5.0) L 11/16/18 06:00 Chloride 101 mmol/L (98-107) 11/16/18 06:00 Carbon Dioxide 35 mmol/L (21-33) H 11/16/18 06:00 Anion Gap 8 (10-20) L 11/16/18 06:00 BUN 22 mg/dL (7-21) H 11/16/18 06:00 Creatinine 0.7 mg/dl (0.8-1.5) L 11/16/18 06:00 Est GFR ( Amer) > 60 11/16/18 06:00 Est GFR (Non-Af Amer) > 60 11/16/18 06:00 Random Glucose 98 mg/dL (70-110) 11/16/18 06:00 Calcium 8.8 mg/dL (8.4-10.5) 11/16/18 06:00 Phosphorus 3.8 mg/dL (2.5-4.5) 11/15/18 06:00 Magnesium 1.9 mg/dL (1.7-2.2) 11/15/18 06:00 Iron 21 ug/dL (45-180) L 11/14/18 07:00 TIBC 271 ug/dL (261-462) 11/14/18 07:00 % Saturation 8 % (20-55) L 11/14/18 07:00 Ferritin 25.4 ng/mL 11/14/18 00:05 Total Bilirubin 0.3 mg/dL (0.2-1.3) 11/16/18 06:00 AST 21 U/L (17-59) 11/16/18 06:00 ALT 22 U/L (7-56) 11/16/18 06:00 Alkaline Phosphatase 75 U/L (38-126) 11/16/18 06:00 Lactate Dehydrogenase 522 U/L (333-699) 11/14/18 00:05 Total Creatine Kinase 45 U/L (35-230) 11/14/18 00:05 Troponin I 0.02 ng/mL D 11/14/18 11:15 NT-Pro-B Natriuret Pep 3770 pg/mL (0-450) H 11/14/18 00:05 Total Protein 7.4 g/dL (5.8-8.3) 11/16/18 06:00 Albumin 3.3 g/dL (3.0-4.8) 11/16/18 06:00 Globulin 4.1 gm/dL 11/16/18 06:00 Albumin/Globulin Ratio 0.8 (1.1-1.8) L 11/16/18 06:00 Triglycerides 82 mg/dL (35-160) 11/16/18 06:00 Cholesterol 112 mg/dL (130-200) L 11/16/18 06:00 LDL Cholesterol Direct 55 mg/dL (0-129) 11/16/18 06:00 HDL Cholesterol 38 mg/dL (29-60) 11/16/18 06:00 Vitamin B12 364 pg/mL (239-931) 11/14/18 00:05 Folate 12.5 ng/mL 11/14/18 00:05 Procalcitonin 0.17 NG/ML (0.19-0.49) L 11/14/18 00:05 Urine Color Yellow (YELLOW) 11/15/18 16:28 Urine Appearance Clear (CLEAR) 11/15/18 16:28 Urine pH 6.0 (4.7-8.0) 11/15/18 16:28 Ur Specific Clyman 1.025 (1.005-1.035) 11/15/18 16:28 Urine Protein Negative mg/dL (<30 mg/dL) 11/15/18 16:28 Urine Glucose (UA) Negative mg/dL (NEGATIVE) 11/15/18 16:28 Urine Ketones Negative mg/dL (NEGATIVE) 11/15/18 16:28 Urine Blood Negative (NEGATIVE) 11/15/18 16:28 Urine Nitrate Negative (NEGATIVE) 11/15/18 16:28 Urine Bilirubin Negative (NEGATIVE) 11/15/18 16:28 Urine Urobilinogen 0.2 E.U./dL (<1 E.U./dL) 11/15/18 16:28 Ur Leukocyte Esterase Negative Tiffany/uL (NEGATIVE) 11/15/18 16:28 - Hospital Course Hospital Course: Yao Contreras DO, PGY-1 Hospitalist Discharge Summary for Dr. Mode Andrade is a pleasant 78 year old male with PMH of brain aneurysm, HTN, bullous pemphigoid (diagnosed approx 1 year ago), and unclear history of PE presented to [facility] ED with his daughter for concern of worsening bullous pemphigoid flare with associated pruritis and worsening redness of abdominal skin lesions. He also complained of worsening SOB at the time of presentation with dry cough. He was found to have acute mild vascular congestion on CXR with elevated pro-BNP and was started on IV lasix for possible CHF exacerbation. He was subsequently admitted to telemetry for treatment of bullous pemphigoid flare and treatment of pulmonary edema. He was started on prednisone 40 mg daily for bullous pemphigoid flare. Cardiology (Dr. Silvino Cross) was consulted. TTE revealed mild to moderate concentration LVH, normal LV function, EF within normal range (55.8%), normal LV segment wall motion, grade II pseudonormal filling transmitral doppler flow pattern, mild mitral valve regurgitation, moderate tricuspid valve regurgitatio n, and moderate to severe pulmonary HTN. Cardiology recommended continuing lasix 40 mg PO daily upon discharge. ID was consulted to evaluate bullous pemphigoid flare-up with superimposed skin infection. ID agreed with plan of steroid taper and recommended doxycycline 100 mg BID at first but wound cultures came back on 11/16/2018 positive for MSSA resistant to tetracyclines. ID subsequently recommend he finish a five day course of keflex on discharge. On 11/15/2018, patient was seen by medical team and was noted to have confusion. Patients daughter was contacted for collateral information. She expressed concern that he seemed more demented than usual, as he had called her several times the night before confused. He was subsequently worked up for altered mental status. CT Head showed suggested worsening of chronic periventricular white matter ischemic disease and found no acute hemorrhage and UA (Urinalysis) showed no evidence of possible urinary tract infection (UTI). His disorientation improved later in the afternoon after visiting with his daughter. He informed the medical team that his daughter is an RN and will be able to provide assistance with medications. However, his daughter requested a visiting nurse to come to his home to determine if he would be eligible for home visits. This plan was discussed with manager case management who set up a meeting with visiting nurse agency. Discharge plan was discussed with patient and daughter. All questions were answered. Patient seen, examined, and discharge plan discussed with my attending Jason RodriguezO. IM Resident PGY-1 Discharge Exam - Head Exam Head Exam: ATRAUMATIC, NORMAL INSPECTION, NORMOCEPHALIC - Eye Exam Eye Exam: EOMI, Normal appearance, PERRL - ENT Exam ENT Exam: Mucous Membranes Moist - Neck Exam Neck exam: Full Rom, Normal Inspection - Respiratory Exam Respiratory Exam: Clear to PA & Lateral, NORMAL BREATHING PATTERN, UNREMARKABLE. absent: Rales, Rhonchi, Wheezes - Cardiovascular Exam Cardiovascular Exam: REGULAR RHYTHM, RRR, +S1, +S2. absent: Diastolic murmur, Gallop, Rubs, Systolic Murmur - GI/Abdominal Exam GI & Abdominal Exam: Normal Bowel Sounds, Soft. absent: Tenderness Additional comments: Multiple bullae improved since admission but still present. Erythematous patch c/w underlying skin infection of bullae has largely resolved since admission. - Extremities Exam Additional comments: Pulses 2+ throughout, trace pitting edema b/l - Back Exam Back exam: NORMAL INSPECTION - Neurological Exam Neurological exam: Alert, Oriented x3 - Psychiatric Exam Psychiatric exam: Normal Affect, Normal Mood - Skin Additional comments: Multiple bullae and other skin findings as above on abdominal exam. Diffuse xerosis cutis Discharge Plan - Discharge Medications Prescriptions: amLODIPine [Norvasc] 5 mg PO DAILY #14 tab Carvedilol [Coreg] 3.125 mg PO BID #28 tab Cephalexin [cephalexin] 500 mg PO BID #10 cap Docusate Sodium [Colace] 100 mg PO BID #60 capsule Donepezil HCl [Aricept] 5 mg PO DAILY #14 tablet Ferrous Sulfate [Feosol] 324 mg PO TID #28 ect Furosemide [Lasix] 40 mg PO DAILY #14 tab predniSONE [predniSONE Tab] 40 mg PO DAILY 7 Days #7 tab predniSONE [predniSONE Tab] 30 mg PO DAILY #7 tab - Follow Up Plan Condition: STABLE Disposition: HOME/ ROUTINE Instructions: Bullous Pemphigoid Additional Instructions: Please follow up with your primary care doctor, Dr. Padron, within 1 week. Follow up with a shingle bolt cutter in [address] Quinteros in [place], [place]. Please call her office to see if its accepted under your insurance. We have given you a steroid taper to help with your bullous pemphigoid. You will take 40 mg of Prednisone daily for 1 week. After that, you will take 30 mg of Prednisone daily for 1 week. Please reach out to your shingle bolt cutter or primary care doctor for further tapering of your steroids. We have arranged for home health agency to come and evaluate whether you are eligible for services. Please resume your home medications as directed. You were started on a new medication, Lasix 40 mg daily. You can resume the medication at home. You are also given Keflex 500 mg 1 tablet two times a day, for 5 days. Please take as directed. Return to ED for any recurrence or new concerning symptoms. Referrals: Faiza Quinteros MD [Staff Provider] - Markie Padron MD [Primary Care Provider] - <Myke Coello - Last Filed: 11/16/18 17:07> Provider - Provider Date of Admission: 11/15/18 15:58 Attending physician: Myke Coello MD Primary care physician: Markie Padron MD Consults: 11/14/18 02:34 Infectious Disease Consult Routine Comment: Consulting Provider: Hernandez Krishnamurthy Consulting Physician: Hernandez Krishnamurthy Reason for Consult: Cellulitis, hx bullous pemphigoid 11/14/18 02:35 Cardiology Consult Routine Comment: Consulting Provider: Silvino Cross Consulting Physician: Silvino Cross Reason for Consult: elevated BNP, dyspnea on exertion 11/14/18 05:06 Social Work Referral Routine Comment: protocol Physician Instructions: Reason For Exam: needs assistance 11/14/18 05:22 Transition In Care/Readmission Reduction Routine Comment: Physician Instructions: Reason For Exam: protocol 11/15/18 15:23 Senior Salesforce Developer [Case Management Referral] Routine Comment: Physician Instructions: Reason For Exam: needs home health aide, dementia Reason for Referral: Senior Salesforce Developer [facility] Course - Lab Results Lab Results: Micro Results 11/13/18 23:30 Skin - Lesion Gram Stain - Final 11/13/18 23:30 Skin - Lesion Wound Culture - Final Staphylococcus Aureus 11/14/18 00:15 Blood Blood Culture - Preliminary NO GROWTH AFTER 48 HOURS 11/14/18 00:00 Blood Blood Culture - Preliminary NO GROWTH AFTER 48 HOURS Most Recent Lab Values WBC 6.7 10^3/uL (4.5-11.0) 11/16/18 06:00 RBC 3.96 10^6/uL (3.5-6.1) 11/16/18 06:00 Hgb 9.2 g/dL (14.0-18.0) L 11/16/18 06:00 Hct 31.5 % (42.0-52.0) L 11/16/18 06:00 MCV 79.5 fl (80.0-105.0) L 11/16/18 06:00 MCH 23.2 pg (25.0-35.0) L 11/16/18 06:00 MCHC 29.2 g/dl (31.0-37.0) L 11/16/18 06:00 RDW 16.7 % (11.5-14.5) H 11/16/18 06:00 Plt Count 386 10^3/uL (120.0-450.0) 11/16/18 06:00 MPV 9.3 fl (7.0-11.0) 11/16/18 06:00 Neut % (Auto) 71.2 % (50.0-68.0) H 11/16/18 06:00 Lymph % (Auto) 20.2 % (22.0-35.0) L 11/16/18 06:00 Weakley % (Auto) 6.3 % (1.0-6.0) H 11/16/18 06:00 Eos % (Auto) 2.2 % (1.5-5.0) 11/16/18 06:00 Baso % (Auto) 0.1 % (0.0-3.0) 11/16/18 06:00 Lymph # (Auto) 1.4 (1.2-3.4) 11/16/18 06:00 Weakley # (Auto) 0.4 (0.1-0.6) 11/16/18 06:00 Eos # (Auto) 0.2 (0.0-0.7) 11/16/18 06:00 Baso # (Auto) 0.01 K/mm3 (0.0-2.0) 11/16/18 06:00 Absolute Neuts (auto) 4.76 (1.4-6.5) 11/16/18 06:00 Retic Count 1.13 % (0.5-1.5) 11/14/18 00:05 PT 13.3 SECONDS (9.4-12.5) H 11/14/18 00:05 INR 1.20 11/14/18 00:05 APTT 31.7 Seconds (26.9-38.3) 11/14/18 00:05 Sodium 141 mmol/L (132-148) 11/16/18 06:00 Potassium 3.5 mmol/L (3.6-5.0) L 11/16/18 06:00 Chloride 101 mmol/L (98-107) 11/16/18 06:00 Carbon Dioxide 35 mmol/L (21-33) H 11/16/18 06:00 Anion Gap 8 (10-20) L 11/16/18 06:00 BUN 22 mg/dL (7-21) H 11/16/18 06:00 Creatinine 0.7 mg/dl (0.8-1.5) L 11/16/18 06:00 Est GFR ( Amer) > 60 11/16/18 06:00 Est GFR (Non-Af Amer) > 60 11/16/18 06:00 Random Glucose 98 mg/dL (70-110) 11/16/18 06:00 Calcium 8.8 mg/dL (8.4-10.5) 11/16/18 06:00 Phosphorus 3.8 mg/dL (2.5-4.5) 11/15/18 06:00 Magnesium 1.9 mg/dL (1.7-2.2) 11/15/18 06:00 Iron 21 ug/dL (45-180) L 11/14/18 07:00 TIBC 271 ug/dL (261-462) 11/14/18 07:00 % Saturation 8 % (20-55) L 11/14/18 07:00 Ferritin 25.4 ng/mL 11/14/18 00:05 Total Bilirubin 0.3 mg/dL (0.2-1.3) 11/16/18 06:00 AST 21 U/L (17-59) 11/16/18 06:00 ALT 22 U/L (7-56) 11/16/18 06:00 Alkaline Phosphatase 75 U/L (38-126) 11/16/18 06:00 Lactate Dehydrogenase 522 U/L (333-699) 11/14/18 00:05 Total Creatine Kinase 45 U/L (35-230) 11/14/18 00:05 Troponin I 0.02 ng/mL D 11/14/18 11:15 NT-Pro-B Natriuret Pep 3770 pg/mL (0-450) H 11/14/18 00:05 Total Protein 7.4 g/dL (5.8-8.3) 11/16/18 06:00 Albumin 3.3 g/dL (3.0-4.8) 11/16/18 06:00 Globulin 4.1 gm/dL 11/16/18 06:00 Albumin/Globulin Ratio 0.8 (1.1-1.8) L 11/16/18 06:00 Triglycerides 82 mg/dL (35-160) 11/16/18 06:00 Cholesterol 112 mg/dL (130-200) L 11/16/18 06:00 LDL Cholesterol Direct 55 mg/dL (0-129) 11/16/18 06:00 HDL Cholesterol 38 mg/dL (29-60) 11/16/18 06:00 Vitamin B12 364 pg/mL (239-931) 11/14/18 00:05 Folate 12.5 ng/mL 11/14/18 00:05 Procalcitonin 0.17 NG/ML (0.19-0.49) L 11/14/18 00:05 Urine Color Yellow (YELLOW) 11/15/18 16:28 Urine Appearance Clear (CLEAR) 11/15/18 16:28 Urine pH 6.0 (4.7-8.0) 11/15/18 16:28 Ur Specific Clyman 1.025 (1.005-1.035) 11/15/18 16:28 Urine Protein Negative mg/dL (<30 mg/dL) 11/15/18 16:28 Urine Glucose (UA) Negative mg/dL (NEGATIVE) 11/15/18 16:28 Urine Ketones Negative mg/dL (NEGATIVE) 11/15/18 16:28 Urine Blood Negative (NEGATIVE) 11/15/18 16:28 Urine Nitrate Negative (NEGATIVE) 11/15/18 16:28 Urine Bilirubin Negative (NEGATIVE) 11/15/18 16:28 Urine Urobilinogen 0.2 E.U./dL (<1 E.U./dL) 11/15/18 16:28 Ur Leukocyte Esterase Negative Tiffany/uL (NEGATIVE) 11/15/18 16:28 Attending/Attestation - Attestation I have personally seen and examined this patient.: Yes I have fully participated in the care of the patient.: Yes I have reviewed all pertinent clinical information, including history, physical exam and plan: Yes Notes (Text): 11/16/18 17:04 78 year old male with past medical history of hyperntension and bullous pemphigoid who presented with shortness of breath, LE edema/rash and abdominal rash. He was started on antibiotics and steroids for bullous pemphigoid flare up with superimposed cellulitis. Wound culture grew staph aureus. He was being followed by ID who recommended outpatient dermatology follow up. He was also found to have congestion on CXR with elevated pbnp and started on lasix for presumed CHF. His dyspnea has improved and cardiology switched lasix to po. Echocardiogram was reviewed which showed preserved EF with moderate- severe pulmonary hypertension. Yesterday he was noted to have episode of delirium, now resolved. CT head was reviewed as above and UA was negative. Patient is discharged home today to follow up with pmd and dermatology. Continue with po antibiotics and tapering steroids. CMx/Sw gave referral for VNS. Myke Coello MD Hospitalist.
== END 2018-11-16 17:29 | disposition home or self-care (01) | DRG 291 ==
LOC: ED 22:21 → ERH 11-14 01:12 → 2RNO 11-14 03:30 → OBSVTOIN 11-15 15:58
PROVIDERS: ADMIT Internal Medicine; ATTEND Internal Medicine
DX: I11.0 Hypertensive heart disease with heart failure (principal); I50.21 Acute systolic (congestive) heart failure; L12.0 Bullous pemphigoid; L03.311 Cellulitis of abdominal wall; B95.61 Methicillin susceptible Staphylococcus aureus infection as the cause of diseases classified elsewhere; I67.1 Cerebral aneurysm, nonruptured; I27.20 Pulmonary hypertension, unspecified; D50.9 Iron deficiency anemia, unspecified; F03.90 Unspecified dementia, unspecified severity, without behavioral disturbance, psychotic disturbance, mood disturbance, and anxiety; J43.9 Emphysema, unspecified; Z86.711 Personal history of pulmonary embolism; Z87.891 Personal history of nicotine dependence

== ENCOUNTER 2018-12-15 10:24 | Outpatient (CLI) | payer MEDICARE, OTHER | END 2018-12-15 10:25 | disposition home or self-care (01) | LOC: RAD 10:24 ==